=== PATIENT | male | born 1940 | race Caucasian/White ===

== ENCOUNTER → 2016-03-30 | Outpatient (CLI) | payer OTHER ==
[~2016-03-30] MED LIST: ALEN70TA4 PO; AMIO200T4 PO; APIX1TAB3 PO; ATOR-24 PO; CINN500T PO; EZET10TA47 PO; EZET10TA63 PO; FIBER PO; FINA5TAB PO; FSMD/70 PO; FURO-85 PO; FURO20TA PO; GABA-112 PO; GLC/500 PO; GLC500 PO; GLUCTAB7 PO; LANS30CA12 PO; LTR510 PO; MISCCAP80 PO; POTA20TA13 PO; SITA100T3 PO; SITA1TAB27 PO; TPRSR50 PO; [UNRECOGNIZED DRUG - CODE] PO
--- NOTE | 2016-03-31 05:32 | PAP/PSG TECHNICIAN REPORT ---
[facility] Burr Grinder Polysomnogram Report Study name: None Report date: 03/31/2016 Study date: 03/30/2016 Referring Physician: DR. BLAND Name: AVERY MEZA Interpreting Physician: Avery Bland M.D. Date of : 1940 Burr Grinder: Joseline Gamez RPSGT. Sex: Male Age: 75 Study Type: PSG PAP Weight: 195.99 lbs 16.5 in Height: 75 years, Height 5' 9" Neck Circum: BMI: 28.94 Medications: AMIODARONE 400MG, [employer], CINNAMON, ELIQUIS 5 MG, FINASTERIDE 5 MG, FUROSEMIDE 20 MG, GABAPENTIN 100 MG, GLUCOSAINE 500 MG, JANUVIA 100 MG, LIPITOR 40 MG, LOTREL 5-10 MG, METFORMIN 500 MG, METOPROLOL 200 MG, NYSTATIN-TRIAMCINOLONE, POTASSIUM CHLORIDE 20 MEQ, PREVACID 30 MG, PROBIOTIC, ZETIA 10 MG Patient History 75 yr-old male here for a new CPAP treatment study. He was found to be positive for ROYCE via a home sleep study. His AHI was 9.5. He chose an AirFit F10 full face mask size medium from [employer]. The test was started on room air and 4 CMH2O. ETCO2 testing was not utilized during this study. Room 1 Parameters Monitored NPSG: E1-M2, E2-M1, Fp1-M2, Fp2-M1, F3-M2, F4-M2, F4-M1, C3-M2, C4-M2, C4-M1, O1-M2, O2-M2, O2-M1, T3-M2, T4-M1, P3-M2, P4-M1, CHIN1, CHIN2, HR, EKG, Legs, PFLOW, SNOR, FLOW, CFLOW, Tidal Volume, THOR, ABDO, SpO2, PLTH, CPRESS, ETCO2 Wave, ETCO2, pH Sleep Architecture Sleep Stages Time at Lights Off 8:55:16 PM STAGES Time (min.) TST (%) Time at Lights On 4:56:16 AM Wake 140.5 -- Total Recording Time (TRT) 481.00 min. N1 60.5 18 Total Sleep Period (TSP) 451.5 min. N2 201.0 59 Total Sleep Time (TST) 340.5min. N3 0.0 0 Awake Time 140.5 min. REM 79.0 23 Wake after Sleep Onset 128.0 min. Sleep Efficiency (SE) 71 % Sleep Onset Latency (HUBERT) 12.5 min. Number of Stage 1 Shifts None Awakenings 28 Stage Changes 107 Number of REM periods 4 REM 79.0 23 REM Latency 136.0 min. NREM 261.5 77 Body Position Analysis Supine Right Left Side Prone Vertical Total Sleep Time (min.) 27.5 233.5 102.3 335.76 0.0 0.0 Total Sleep Time (%) 1% 69% 30% 99 0% N/A% Total Sleep Time REM (min.) 0.0 77.0 2.0 None 0.0 0.0 Total Sleep Time NREM (min.) 4.7 156.5 100.3 None 0.0 0.0 Intermittent Wake (min.) 22.7 49.8 68.0 None 0.0 0.0 Total Sleep Period (%) 3% None None None None None Arousals Myoclonus (PLM) * Events Count Index Events Count Index Spontaneous 36 6 Events Awake (PLMW) 202 86.3 Respiratory 12 2.6 Events Asleep w/ Arousal (PLMA) 20 3.5 PLM 20 4 Events Asleep w/o Arousal (PLMS) 134 23.6 Snoring 0 0 Total Asleep 154 27.1 Total 68 12 Total 356 44 Respiratory Analysis * CA OA MA CH H RERA Total Count 0 1 0 0 20 7 21 Index 0.0 0.2 0.0 0 3.5 1 4.9 Mean Duration 0.0 19.8 0.0 0.00 19.0 17.1 18.6 Longest Duration 0.0 19.8 0.0 0.00 0.0 19.1 30.5 Respiratory Event Summary Total Supine ~Supine Right Left Prone REM NREM Apneas Count 1 1 0 0 0 N/A 0 1 Index 0.2 13 0 0.0 0.0 N/A 0 0 Hypopneas (4% Desat) Count 20 7 13 6 7 N/A 0 20 Index 3.5 88.5 2 1.5 4.1 N/A 0.0 4.6 Apneas & All Hypopneas Count 21 8 13 6 7 N/A 0 21 Index 3.7 101 2 2 4 N/A 0.0 4.8 Respiratory Events (Artificial Limb Fitter+All Hyp+RERA) Count 21 8 20 8 12 N/A 0 21 Index 4.9 101 4 2.1 7.0 N/A 0.0 6.4 Respiratory Related Arousal Count 12 8 8 2 6 N/A 0 15 Index 2.6 89 1 1 4 N/A 0 3 Snoring Analysis Supine Right Left Prone REM NREM Total Snore duration 1.0 min Snores count 0 9 7 N/A 5 11 16 Snore mean duration 3.8 Sec Snores index 0 2 4 N/A 3.8 2.5 2.8 TST with snoring (%) 0.3% Desaturation Event Summary: Minimum %SpO2 Event Count Mean/Min/Max Duration(sec.) Desaturation Index % Time In Bed > 90 46 33.5 / 15.3 / 60.0 6.2 96.8 86 - 90 0 N/A 0.0 3.1 81 - 85 0 N/A 0.0 0.1 76 - 80 0 N/A 0.0 0.0 71 - 75 0 N/A 0.0 0.0 66 - 70 0 N/A 0.0 0.0 61 - 65 0 N/A 0.0 0.0 56 - 60 0 N/A 0.0 0.0 51 - 55 0 N/A 0.0 0.0 < 50 0 N/A 0.0 0.0 Total REM NREM Awake <50% 0.0 min. 0.0 min. 0.0 min. 0.0 min. 51 - 60% 0.0 min. 0.0 min. 0.0 min. 0.0 min. 61 - 70% 0.0 min. 0.0 min. 0.0 min. 0.0 min. 71 - 80% 0.0 min. 0.0 min. 0.0 min. 0.0 min. 81 - 90% 14.6 min. 4.4 min. 7.8 min. 2.4 min. 91 - 100% 445.2 min. 74.6 min. 253.7 min. 116.9 min. Average 93 93 93 95 Minimum SpO2 82 90 89 82 Desaturation Event Index 5.7 0.0 6.0 9.0 # Desat. Events below 89% 1 N/A N/A 1 Time(%) with Saturation below 89% 0.1 0.0 0.0 0.1 Time(min.) with Saturation below 89% 0.6 0.0 0.0 0.6 Time (mins) REM (mins) NREM (mins) % of TST SpO2 Below 90% 8 N/A N8 0.3 SpO2 Below 88% 0 0 0 0 Heart Rate Analysis Min (bpm) Max (bpm) Average (bpm) Awake 40 237 46 NREM 40 52 46 REM 46 52 48 Overall 40 52 46 Supplemental O2 Values Minimum O2 level: None Value Start Time End Time Burr Grinder Comments Mr. Meza slept in the right and left positions. No cardiac arrhythmias were noted. PLMs were noted. No bruxism noted. CPAP was initiated at +4 CMH2O and up-titrated to a level of +7 CMH2O, Cflex 2. An AirFit F10 full face mask size medium from [employer] was used during titration He awoke to use the restroom one time during the night. Mr. Meza stated that he slept about the same as usual. The final report will be interpreted and signed by a sleep physician. The completed physician report will then be placed in the patient medical record. Therapy Event: Therapy (cm H20) 4 6 7 Total Time at Pressure (min.) 150.8 289.9 40.4 TST at Pressure (min.) 101.3 219.9 19.4 # Periods 1 1 1 Sleep Onset (min.) 12.5 0.0 0.0 REM Onset (min.) 148.5 0.0 17.4 Sleep Efficiency % 67 75 48 Wakefulness (%) 32.8 24.1 52.0 Wakefulness (min.) 49.5 70.0 21.0 NREM 1 (%) 21.2 9.0 6.2 NREM 1 (min.) 32.0 26.0 2.5 NREM 2 (%) 44.4 42.5 26.9 NREM 2 (min.) 67.0 123.1 10.9 NREM 3 (%) 0.0 0.0 0.0 NREM 3 (min.) 0.0 0.0 0.0 REM (%) 1.5 24.4 14.9 REM (min.) 2.3 70.7 6.0 # Arousals 33 30 5 Arousal Index 19.6 8.2 15.5 # Snore 6 8 2 Snore Index 3.6 2.2 6.2 AHI 7.7 1.9 3.1 AHI Supine 110.9 80.0 N/A AHI Non-Supine 4.3 1.4 3.1 NREM AHI 7.9 2.8 4.5 REM AHI 0.0 0.0 0.0 RDI 10.7 2.5 3.1 # Obstructive 0 1 0 # Central Ap 0 0 0 # Mixed 0 0 0 # Hypopneas 13 6 1 RERAS 5 2 0 Total Respiratory Events 18 9 1 Time Below SpO2 89.00% (min.) 0.0 0.0 0.0 Mean NREM SpO2 (%) 92 93 93 Mean REM SpO2 (%) 92 93 93 Mean Sleep SpO2 (%) 92 93 93 Min NREM SpO2 (%) 89 90 91 Min REM SpO2 (%) 91 90 92 Position Supine (min.) 3.2 1.5 0.0 Position Non-supine (min.) 98.0 218.4 19.4 LM Index Sleep 29.6 25.4 34.1 LM Index NREM 30.3 23.3 27.0 LM Index REM 0.0 29.7 50.0 Mean Heart Rate (bpm) 43 48 47 Min Heart Rate (bpm) 40 40 45
--- NOTE | 2016-04-03 07:01 | POLYSOMNOGRAPH REPORT ---
CLINICAL DATA: A 75-year-old male with BMI of 29, referred by myself and his referring physician, for a CPAP titration study. He recently had a home sleep study which showed mild sleep apnea with an AHI of 9.5. He chose an AirFit F10 full face mask size medium from [employer]. SLEEP ARCHITECTURE: Total sleep period was 451.5 minutes. Total sleep time was 340.5 minutes divided between 261.5 minutes of non-REM sleep and 79 minutes of REM sleep. Sleep onset latency was 12.5 minutes. REM latency was slightly delayed at 136 minutes. Sleep efficiency was slightly reduced at 71%. Wake after sleep onset was 128 minutes. Sleep consisted of stage N1 18%, N2 59%, and REM 23%. AROUSAL DATA: 68 arousals were recorded for an index of 12 per hour. PLM DATA: Mildly elevated limb movements during sleep were noted. There were 154 limb movements during sleep noted for an index of 27.1 per hour with arousal index of 3.5 per hour. RESPIRATORY DATA: The AHI was 3.7. There was 1 obstructive apneic episode, 19.8 seconds in duration. There were 20 hypopneic episodes. The mean duration of hypopnea was 19 seconds. OXIMETRY DATA: No hypoxemia was seen. Oxygen mary was 89% during non-REM sleep. Mean saturation was 93%. EKG: Heart rates ranged from 40-52 beats per minute. No arrhythmias were noted. H[employer]CHOOL ACADEMIC COACH'S COMMENTS: The patient slept in the right and left positions. The patient used an AirFit F10 full face mask size medium from [employer]. He was started on CPAP and was titrated up to his final pressure setting of 7 cm of water pressure. At this final pressure setting, the patient slept for 19.4 minutes with an AHI of 3.1. IMPRESSION: Mild sleep apnea corrected with CPAP 7 cm of water pressure, C-Flex setting #2 utilizing an AirFit F10 full face mask size medium from [employer]. RECOMMENDATIONS: The patient will be seen back in the sleep clinic to institute therapy with CPAP. [place]
== END | disposition home or self-care (01) ==
LOC: C.NEUR 20:00
PROVIDERS: ATTEND Internal Medicine Pulmonary Disease
DX: I48.91 Unspecified atrial fibrillation (principal); G47.19 Other hypersomnia; G47.33 Obstructive sleep apnea (adult) (pediatric)

== ENCOUNTER → 2016-04-04 | Outpatient (CLI) | payer OTHER ==
[~2016-04-04] VITALS: Ht 175.3 cm; Wt 86.8 kg
[2016-04-04 12:08] VITALS: BP 138/88; PULSE 48; Ht 175.3 cm; Wt 86.8 kg
== END | disposition home or self-care (01) ==
LOC: C.NEUR 11:25
PROVIDERS: ATTEND Internal Medicine Pulmonary Disease
DX: G47.33 Obstructive sleep apnea (adult) (pediatric) (principal); I48.91 Unspecified atrial fibrillation

== ENCOUNTER → 2016-04-21 | Day surgery (SDC) | payer OTHER ==
[2016-04-10 13:52] VITALS: BMI 28.0
[~2016-04-21] VITALS: Ht 175.3 cm; Wt 86.4 kg
[~2016-04-21] MED LIST changes: -EZET10TA47 PO; -FSMD/70 PO; -FURO20TA PO; -GLC500 PO; +GLYCOPYRROLATE INJ 0.2 MG/ML VIAL ONE; +LIDOCAINE HCL 2% 2 ML VIAL (20MG/ML) ONE; +PROPOFOL IV EMULSION 10 MG/ML 20 ML VIAL IV ONE; -SITA1TAB27 PO; -TPRSR50 PO; -[UNRECOGNIZED DRUG - CODE] PO
[2016-04-21 14:00] VITALS: TEMP 36.4
[2016-04-21 14:06] VITALS: Ht 175.3 cm; Wt 86.4 kg
--- NOTE | 2016-04-21 14:57 | Endo History and Physical ---
History & Physical Date of Service: Apr 21, 2016. Chief Complaint: DIFFICULTY SWALLOWING Referring Physician: DR SEDRICK TO History of Present Illness For EGD Past Medical History Diabetes, Arthritis, High Cholesterol, Hypertension Past Surgical History Hx Cardiac Surgery: Yes (HEART CATH --> VALVE REPLACEMENT AND REPAIR, CARDIOVERSION X3) Hx Internal Defibrillator: No Hx Pacemaker: No Hx Abdominal Surgery: Yes (HERNIA REPAIR X2) Hx of Implantable Prosthesis: No Hx Post-Op Nausea and Vomiting: No Hx Cancer Surgery: No Hx Thoracic Surgery: No Hx Orthopedic: No Hx Urinary Tract Surgery: Yes (TURP) Family History None Social History Smoking Status: Never Smoker Hx Substance Use: No Hx Alcohol Use: Yes (QUIT 15 YEARS AGO) Allergies Coded Allergies: Oxycodone (Verified Adverse Reaction, Intermediate, "made me loopy", ) Current Medications Reported Home Medications Medications Dose Route/Sig Max Daily Dose Days Date Category Probiotic (Probiotic Product) 1 Cap Cap 1 Tab PO BID 04/21/16 Reported Januvia (Sitagliptin Phosphate) 100 Mg Tab 100 Mg PO DAILY 04/12/16 Reported Glucophage (Metformin Hcl) 500 Mg Tab 1,000 Mg PO BID 04/12/16 Reported Prevacid (Lansoprazole) 30 Mg Capcr 30 Mg PO DAILY 04/12/16 Reported Glucosamine Chondroitin (Zipydbhhbqa-Xmalifzqhpa-Vvy C-) 1 Tab Tab 2 Tab PO DAILY 04/12/16 Reported Neurontin (Gabapentin) 100 Mg Cap 100 Mg PO TID 04/12/16 Reported Lasix (Furosemide) 20 Mg Tab 20 Mg PO DAILY 04/12/16 Reported Proscar (Finasteride) 5 Mg Tab 5 Mg PO DAILY 04/12/16 Reported Fiber Laxative (Fiber) Ea 1 Tab PO DIRECTED PRN 04/12/16 Reported Zetia (Ezetimibe) 10 Mg Tab 10 Mg PO DAILY 04/12/16 Reported Cinnamon 500 Mg Tab 2 Tab PO DAILY 04/12/16 Reported Lipitor (Atorvastatin Calcium) 40 Mg Tab 40 Mg PO DAILY 04/12/16 Reported Eliquis (Apixaban) 5 Mg Tab 1 Tab PO BID 04/12/16 Reported Lotrel 5MG/10MG (Amlodipine/Benazepril HCl) 5 Mg/10 Mg Cap 1 Cap PO DAILY 04/12/16 Reported Fosamax (Alendronate Sodium) 70 Mg Tab 70 Mg PO WK 04/12/16 Reported Cordarone (Amiodarone Hcl) 200 Mg Tab 200 Mg PO DAILY 04/12/16 Reported Potassium Chloride Er (Potassium Chloride Microencaps) 20 Meq Tab 20 Meq PO DAILY 01/13/15 Reported Vital Signs Weight (Kilograms): 86.36 Height (Feet): 5 Height (Inches): 9 Date Time Temp Pulse Resp B/P Pulse Ox O2 Delivery O2 Flow Rate FiO2 04/21/16 14:02 190/95 04/21/16 14:00 36.4 48 20 193/90 100 Room Air Physical Exam General Appearance: WD/WN Respiratory/Chest: Respiratory effort: no dyspnea Cardiovascular: Heart Auscultation: RRR Abdomen: Inspection & Palpation: soft (Dysphagia for EGD)
--- NOTE | 2016-04-21 14:58 | Discharge Instructions ---
Endoscopy Patient Instructions Date / Procedure(s) Performed Apr 21, 2016. EGD Allergy Information Coded Allergies: Oxycodone (Verified Adverse Reaction, Intermediate, "made me loopy", ) Discharge Date / Findings Apr 21, 2016. Thickened antral folds Medication Instructions Stopped Medication(s): GABAPENTIN LAST DOSE 04/18/16 ELAQUIS LAST DOSE 04/18/16 Restart Stopped Medication(s): resume meds Reported Home Medications Medications Dose Route/Sig Max Daily Dose Days Date Category Probiotic (Probiotic Product) 1 Cap Cap 1 Tab PO BID 04/21/16 Reported Januvia (Sitagliptin Phosphate) 100 Mg Tab 100 Mg PO DAILY 04/12/16 Reported Glucophage (Metformin Hcl) 500 Mg Tab 1,000 Mg PO BID 04/12/16 Reported Prevacid (Lansoprazole) 30 Mg Capcr 30 Mg PO DAILY 04/12/16 Reported Glucosamine Chondroitin (Pdtheamqpig-Glaqjaqganm-Bjp C-) 1 Tab Tab 2 Tab PO DAILY 04/12/16 Reported Neurontin (Gabapentin) 100 Mg Cap 100 Mg PO TID 04/12/16 Reported Lasix (Furosemide) 20 Mg Tab 20 Mg PO DAILY 04/12/16 Reported Proscar (Finasteride) 5 Mg Tab 5 Mg PO DAILY 04/12/16 Reported Fiber Laxative (Fiber) Ea 1 Tab PO DIRECTED PRN 04/12/16 Reported Zetia (Ezetimibe) 10 Mg Tab 10 Mg PO DAILY 04/12/16 Reported Cinnamon 500 Mg Tab 2 Tab PO DAILY 04/12/16 Reported Lipitor (Atorvastatin Calcium) 40 Mg Tab 40 Mg PO DAILY 04/12/16 Reported Eliquis (Apixaban) 5 Mg Tab 1 Tab PO BID 04/12/16 Reported Lotrel 5MG/10MG (Amlodipine/Benazepril HCl) 5 Mg/10 Mg Cap 1 Cap PO DAILY 04/12/16 Reported Fosamax (Alendronate Sodium) 70 Mg Tab 70 Mg PO WK 04/12/16 Reported Cordarone (Amiodarone Hcl) 200 Mg Tab 200 Mg PO DAILY 04/12/16 Reported Potassium Chloride Er (Potassium Chloride Microencaps) 20 Meq Tab 20 Meq PO DAILY 01/13/15 Reported Provider Instructions Activity Restrictions - No exercising or heavy lifting for 24 hours. - Do not drink alcohol the day of the procedure. - Do not drive a car or operate machinery until the day after the procedure. - Do not make any important decisions or sign important papers in 24 hours after the procedure. Following Day: - Return to full activity which may include returning to work/school. Diet Start your diet with liquids and light foods (jello, soup, juice, toast). Then eat your usual diet if not nauseated. Treatment For Common After Affects For mild abdominal pain, bloating, or excessive gas: - Rest - Eat lightly - Lie on right side Follow-Up Information Follow-up with DR SEDRICK TO as scheduled Anesthesia Information What You Should Know You have had a procedure that required some medicine to reduce anxiety and discomfort. This treatment is called moderate sedation. After receiving the treatment, you may be sleepy, but you will be able to breathe on your own. The effects of the treatment may last for several hours. Follow these instructions along with Activity/Diet recommendations noted above: * Do NOT do anything where dizziness or clumsiness would be dangerous. * Rest quietly at home today, then you can be up and about tomorrow. * Have a responsible person stay with you the rest of today. * You may have had an I.V. today. If so, you may take the dressing off later today. Recommendations Call your doctor if: * Trouble breathing * Continuous vomiting for more than 24 hours * Temperature above 101 degrees * Severe abdominal pain or bloating * Pain not relieved by pain medicine ordered * There is increased drainage or redness from any incision * A large amount of rectal bleeding greater than 2-3 tablespoons. (If you had a polyp/s removed or have hemorrhoids, a small amount of blood - from the rectum is to be expected.) * You have any unanswered questions or concerns. IN THE EVENT OF A SERIOUS EMERGENCY, GO TO THE NEAREST EMERGENCY ROOM Your discharge instructions were prepared by provider Charles Bryant. Patient Instructions Signature Page Florentin Portillo Patient (or Guardian) Signature/Date: I have read and understand the instructions given to me by my caregivers. Caregiver/RN/Doctor Signature/Date: The above-named patient and/or guardian has received patient instructions on this date. + Original Patient Signature Page (only) stays with chart. Please make copy for patient.
--- NOTE | 2016-04-21 15:02 | GI REPORT ---
Procedure Date: 04/21/2016 2:49 PM Procedure: Upper GI endoscopy Indications: Dysphagia Medicines: Propofol total dose 80 mg IV, Lidocaine 20 mg IV Complications: No immediate complications. Estimated Blood Loss: Estimated blood loss: none. Procedure: Pre-Anesthesia Assessment: - Prior to the procedure, a History and Physical was performed, and patient medications, allergies and sensitivities were reviewed. The patient's tolerance of previous anesthesia was reviewed. - The risks and benefits of the procedure and the sedation options and risks were discussed with the patient. All questions were answered and informed consent was obtained. After obtaining informed consent, the endoscope was passed under direct vision. Throughout the procedure, the patient's blood pressure, pulse, and oxygen saturations were monitored continuously. The scope was introduced through the mouth, and advanced to the second part of duodenum. The upper GI endoscopy was accomplished without difficulty. The patient tolerated the procedure well. Findings: The examined esophagus was normal. Patchy mild mucosal changes characterized by congestion were found in the gastric antrum. The examined duodenum was normal. Impression: - Normal esophagus. - Congested mucosa in the antrum. - Normal examined duodenum. - No specimens collected. Recommendation: - Discharge patient to home (ambulatory). - Continue present medications. - Return to primary care physician PRN. Charles Bryant M.D. Charles Bryant MD 04/21/2016 3:02:39 PM This report has been signed electronically. Note Initiated On: 04/21/2016 2:49 PM I attest to the content of the Intraoperative Record and orders documented therein, exceptions below
[2016-04-21 15:32] VITALS: BP 169/79; PULSE 44; O2SAT 97
--- NOTE | 2016-04-21 16:02 | Anesthesiology Progress Note ---
Anesthesia Post Op Note Date & Time Apr 21, 2016 at 16:02 Vital Signs Pain Intensity: 0 Vital Signs Past 12 Hours Date Time Temp Pulse Resp B/P Pulse Ox O2 Delivery O2 Flow Rate FiO2 04/21/16 15:32 44 20 169/79 97 Room Air 04/21/16 15:17 45 20 183/81 96 Room Air 04/21/16 15:02 41 20 141/68 98 Room Air 04/21/16 14:02 190/95 04/21/16 14:00 36.4 48 20 193/90 100 Room Air Notes Mental Status: alert / awake / arousable, participated in evaluation Pt Amnestic to Procedure: Yes Nausea / Vomiting: adequately controlled Pain: adequately controlled Airway Patency, RR, SpO2: stable & adequate BP & HR: stable & adequate Hydration State: stable & adequate Anesthetic Complications: no major complications apparent
== END | disposition home or self-care (01) ==
LOC: C.GI 13:31
PROVIDERS: ATTEND Internal Medicine Gastroenterology
DX: R13.10 Dysphagia, unspecified (principal); E11.9 Type 2 diabetes mellitus without complications; E78.00 Pure hypercholesterolemia, unspecified; I10 Essential (primary) hypertension; Z95.2 Presence of prosthetic heart valve

== ENCOUNTER → 2016-06-27 | Outpatient (CLI) | payer OTHER ==
[~2016-06-27] VITALS: Ht 175.3 cm; Wt 86.0 kg
[~2016-06-27] MED LIST changes: -GLYCOPYRROLATE INJ 0.2 MG/ML VIAL ONE; -LIDOCAINE HCL 2% 2 ML VIAL (20MG/ML) ONE; -PROPOFOL IV EMULSION 10 MG/ML 20 ML VIAL IV ONE
[2016-06-27 12:45] VITALS: BP 131/69; PULSE 38; Ht 175.3 cm; Wt 86.0 kg
[2016-06-27 12:46] VITALS: PULSE 81
== END | disposition home or self-care (01) ==
LOC: C.NEUR 10:57
PROVIDERS: ATTEND Physician Assistant Medical
DX: G47.33 Obstructive sleep apnea (adult) (pediatric) (principal); I48.91 Unspecified atrial fibrillation

== ENCOUNTER → 2016-07-18 | Outpatient (CLI) | payer OTHER | END | disposition home or self-care (01) | LOC: C.LABMFLN 07:13 | PROVIDERS: ATTEND Urology | DX: N40.1 Benign prostatic hyperplasia with lower urinary tract symptoms (principal) ==

== ENCOUNTER → 2016-07-25 | Outpatient (CLI) | payer OTHER | END | disposition home or self-care (01) | LOC: C.PATHSPEC 17:24 | PROVIDERS: ATTEND Urology | DX: N40.1 Benign prostatic hyperplasia with lower urinary tract symptoms (principal) ==

== ENCOUNTER → 2016-11-16 | Outpatient (CLI) | payer OTHER ==
--- NOTE | 2016-11-16 13:07 | DIAGNOSTIC IMAGING REPORT ---
LEFT ART DOP DUP UPPER EXT UNI CLINICAL HISTORY: SWELLING, MASS IN LEFT UPPER LIMB COMPARISON STUDY: No previous studies for comparison. FINDINGS: Arterial Doppler ultrasound of the left upper extremity was performed. Left common carotid and vertebral waveforms appear normal. There is triphasic flow within the left subclavian. There is biphasic flow within the left axillary. There was biphasic flow within the left brachial. There is triphasic flow within the distal left brachial. There is biphasic flow within the left radial and triphasic flow within the left ulnar artery. There are no high velocity jets to indicate an arterial stenosis. The patient's small anterior upper arm lump appears to represent the brachial artery. No aneurysm was visualized at this location. IMPRESSION: 1. No evidence of left upper extremity or arterial stenosis 2. The patient's palpable abnormality appears to correspond to a normal brachial artery Electronically signed by: Aren Clemente M.D. 11/16/2016 1:06 PM Dictated Date/Time: 11/16/2016 1:04 PM
== END | disposition home or self-care (01) ==
LOC: C.ULTR 12:15
PROVIDERS: ATTEND Family Medicine
DX: R22.32 Localized swelling, mass and lump, left upper limb (principal)

== ENCOUNTER → 2016-12-26 | Outpatient (CLI) | payer OTHER ==
[~2016-12-26] VITALS: Ht 175.3 cm; Wt 81.7 kg
[2016-12-26 12:40] VITALS: BP 158/75; PULSE 56; Ht 175.3 cm; Wt 81.7 kg
== END | disposition home or self-care (01) ==
LOC: C.NEUR 12:10
PROVIDERS: ATTEND Physician Assistant Medical
DX: G47.33 Obstructive sleep apnea (adult) (pediatric) (principal); I48.91 Unspecified atrial fibrillation

== ENCOUNTER → 2017-06-26 | Outpatient (CLI) | payer OTHER ==
[~2017-06-26] VITALS: Ht 175.3 cm; Wt 83.0 kg
[2017-06-26 12:41] VITALS: BP 174/88; PULSE 52; Ht 175.3 cm; Wt 83.0 kg
== END | disposition home or self-care (01) ==
LOC: C.NEUR 12:05
PROVIDERS: ATTEND Internal Medicine Pulmonary Disease
DX: G47.33 Obstructive sleep apnea (adult) (pediatric) (principal); I25.10 Atherosclerotic heart disease of native coronary artery without angina pectoris; I48.91 Unspecified atrial fibrillation

== ENCOUNTER 2019-05-10 22:54 | Inpatient (IN) ==
[2019-05-11 00:03] LABS: Basophils # (auto) 0.03 K/uL (0-0.2); Basophils % (auto) 0.4 %; Eosinophils # (auto) 0.47 K/uL (0-0.5); Eosinophils % (auto) 6.7 %; Hematocrit (blood only) 43.6 % (42-52); Hemoglobin 14.1 g/dL (14.0-18.0); Immature Granulocytes # (auto) 0.01 K/uL (0.00-0.02); Immature Granulocytes % (auto) 0.1 %; Lymphocytes # (auto) 1.52 K/uL (1.2-3.4); Lymphocytes % (auto) 21.6 %; Mean Corpuscular Hemoglobin 29.1 pg (25-34); Mean Corpuscular Hgb Conc 32.3 g/dL (32-36); Mean Corpuscular Volume 90.1 fL (80-100); Mean Platelet Volume 10.3 fL (7.4-10.4); Monocytes # (auto) 0.72 K/uL (0.11-0.59); Monocytes % (auto) 10.2 %; Neutrophils # (auto) 4.28 K/uL (1.4-6.5); Platelet Count 216 K/uL (130-400); RDW Coefficient of Variation 13.8 % (11.5-14.5); RDW Standard Deviation 45.9 fL (36.4-46.3); Red Blood Count 4.84 M/uL (4.7-6.1); White Blood Count 7.03 K/uL (4.8-10.8)
[2019-05-11] MEDS ORDERED: LIDOCAINE HCL 5% OINT 30 GM TUBE EXT STA (00:06)
[2019-05-11 00:20] LABS: Albumin Level 3.9 gm/dl (3.4-5.0); BUN Creatinine Ratio 17.7 (10-20); Calcium 9.1 mg/dl (8.5-10.1); Creatinine Clr Calc Pharmacy 43.6 ml/min; Est GFR (African American) 58.5; Est GFR (Non-African American) 50.5; Potassium 4.3 mmol/L (3.5-5.1)
[2019-05-11 00:22] LABS: Albumin Globulin Ratio 1.1 (0.9-2); Bilirubin,Total 0.4 mg/dl (0.2-1); Globulin 3.7 gm/dl (2.5-4.0); Total Protein 7.6 gm/dl (6.4-8.2)
[2019-05-11] MEDS ORDERED: SODIUM CHLORIDE 0.9% 1000ML 500 ML IV ONE (00:28)
[2019-05-11] MEDS ORDERED: SODIUM CHLORIDE 0.9% 500 ML IV ONE ×2 (01:11→01:47)
[2019-05-11] MEDS ORDERED: IOVERSOL 100ml IV PRN (01:19)
[2019-05-11 01:31] LABS: Appearance Urine Turbid (Clear); Color Urine Red; Specific Gravity Urine 1.032 (1.000-1.060); Sulfosalicylic Acid Urine Positive (Negative)
[2019-05-11 01:33] LABS: RBC Urine >30 /hpf (0-4)
[2019-05-11 01:38] LABS: Bacteria Urine Negative (Negative); Epithelial Cell Urine 0-5 /lpf (0-5)
[2019-05-11] MEDS ORDERED: SODIUM CHLORIDE 0.9% 1000ML 1,000 ML IV SCH (03:30)
--- NOTE | 2019-05-11 04:12 | History & Physical Report ---
Date of Service May 11, 2019 Assessment & Plan (1) Gross hematuria: Patient and report patient has had gross hematuria on and off over the past 11 years. He worsened considerably today. Holding Eliquis. Bladder irrigation. Follow urine culture and sensitivity. Start ceftriaxone 1 g IV daily. Consult urology Present on Admission?: Yes (2) Renal mass, right: 2.5 cm lower pole right kidney lesion which is new compared to CT of 2013. Unclear if this is known to urology, whom will be consulted. Most likely source of gross hematuria. NPO except essential medications Present on Admission?: Yes (3) Hypotension: Patient's blood pressure did drop into the systolic mid 80s. Occurred after placement of Lemus catheter and bladder irrigation. Pressure has recovered to the 110s after 2 L of normal saline. Continue IV fluid rehydration, and follow blood pressure closely. Present on Admission?: Yes (4) Neoplasm, bladder: Known history of bladder neoplasm. Present on Admission?: Yes (5) Atrial fibrillation with RVR: Continue amiodarone 200 mg p.o. daily. Due to low blood pressure, will be holding the following: Amlodipine/benazepril, metoprolol succinate, potassium chloride. Continue amiodarone 200 mg daily Present on Admission?: Yes (6) Prostatitis: BPH with LUTS/prostatitis/history of transurethral resection of prostate- Continue IV fluids. Continue finasteride If blood pressure tolerates would add tamsulosin Present on Admission?: Yes (7) Enlarged prostate: See above Present on Admission?: Yes (8) Hx of transurethral resection of prostate: See above Present on Admission?: Yes (9) H/O aortic valve replacement: History of aortic valve replacement/mitral valve replacement/atrial fibrillation with RVR- We will consult his commercial real estate assistant Dr. Borrego, to help with timing of anticoagulation return. Eliquis will be held until restarted by cardiology Present on Admission?: Yes (10) Hx of von Willebrand's disease: Noted, following platelets serially Present on Admission?: Yes (11) Diabetes mellitus: Patient will be n.p.o. We will hold Jardiance, metformin and sitagliptin. Patient Accu-Cheks before meals and at bedtime/every 6 hours, with NovoLog coverage for scale Present on Admission?: Yes (12) Parkinson's disease: Continue carbidopa levodopa 25/100, 1 tablet p.o. 3 times daily Present on Admission?: Yes (13) GERD (gastroesophageal reflux disease): Continue pantoprazole 40 mg p.o. daily Present on Admission?: Yes History of Present Illness Chief Complaint: The patient presents to the emergency department, with his , due to worsening gross hematuria. Primary Care Provider: Lucho Jacques The patient is a 78-year-old male with a past medical history including gross hematuria, microscopic hematuria, bladder neoplasm, atrial fibrillation, BPH with urinary obstruction, history of aortic valve replacement, history of transurethral resection of the prostate, atrial fibrillation with RVR, history of von Willebrand's disease, prostatitis, history of urinary tract infections. He and his report that he has had gross hematuria off and on for the past 11 years, has been seen by Dr. Brown locally and also by urology at [facility]. His last visit with Dr. Brown was near the end of March. He has had instances where he had to have his Eliquis discontinued briefly and the amiodarone discontinued briefly due to gross hematuria, but most recently has been on both amiodarone and Eliquis, and today noted the acute onset of more significantly brisk blood in urine. Allergies Allergy/AdvReac Type Severity Reaction Status Date / Time oxycodone AdvReac Intermediate "made me Verified 05/11/19 01:51 loopy" Home Medications Home Medications Medication Instructions Recorded Confirmed Type alendronate 70 mg tablet 70 mg PO WE #4 tab 12/03/18 05/11/19 History amlodipine 5 mg-benazepril 10 mg 1 cap PO QAM cap 12/03/18 05/11/19 History capsule apixaban 5 mg tablet 5 mg PO BID #60 tab 12/03/18 05/11/19 History atorvastatin 40 mg tablet 40 mg PO QPM #90 tab 12/03/18 05/11/19 History ezetimibe 10 mg tablet 10 mg PO HS #90 tab 12/03/18 05/11/19 History furosemide 20 mg tablet 20 mg PO HS #90 tab 12/03/18 05/11/19 History lansoprazole 30 mg capsule,delayed 30 mg PO QDD cap 12/03/18 05/11/19 History release metformin 500 mg tablet 1,000 mg PO BID tab 12/03/18 05/11/19 History metoprolol succinate 50 mg 50 mg PO QAM #30 tab 12/03/18 05/11/19 History tablet,extended release 24 hr potassium chloride 20 mEq 20 meq PO BID #90 tab 12/03/18 05/11/19 History tablet,extended release sitagliptin 100 mg tablet 100 mg PO HS tab 12/03/18 05/11/19 History gabapentin 100 mg PO QAM 01/09/19 05/11/19 History finasteride 5 mg tablet 5 mg PO HS #90 tab 01/23/19 05/11/19 History carbidopa 25 mg-levodopa 100 mg 1 tab PO TID 30 Days #90 tab 01/27/19 05/11/19 Rx tablet amiodarone 200 mg PO QAM 03/07/19 05/11/19 History empagliflozin [Jardiance] 10 mg PO DAILY 05/11/19 05/11/19 History Past Med/Surg History Social History Preferred Language: Vietnamese Feels Safe at Home: Yes Smoking Status: Never smoker Review of Systems Review of Systems: The patient denies chest pain, palpitations, shortness of breath, dyspnea on exertion, cough, lower extremity swelling, sore throat, fevers, chills, sweats, weight change, fatigue, nausea, vomiting, diarrhea , constipation, abdominal pain, pelvic pain, blood in stool, dysuria, ightheadedness, dizziness, headache, memory loss, loss of consciousness, rash, imbalance, focal or generalized weakness, numbness or tingling in arms or legs, generalized arthralgias or myalgias, neck pain, or night sweats. The review of systems is otherwise negative other than for that already noted above, and at least 10 systems have been reviewed. Physical Exam Physical Exam: The patient is awake, alert and oriented 3, well developed and well nourished, normocephalic and atraumatic, lying in bed and in no acute distress. HEENT--PERRL, EOMI, mucous membranes and oropharynx dry. Neck--supple. No JVD. No bruits. Thyroid normal, trachea midline, no adenopathy. Heart--normal S1 and S2. No murmurs, rubs or gallops. Lungs--clear bilaterally, no respiratory distress, no accessory muscle use. Abdomen--normal bowel sounds and soft. Nontender. Nondistended. Extremities--no cyanosis or clubbing. No edema. Dermatologic--normal skin turgor, normal color, no abnormal lymph nodes, no rash. Neurologic--cranial nerves II through XII grossly intact. Rheumatologic--normal range of motion. Psychiatric--normal affect. Results & Data Vital Signs (Past 12 Hours) Vital Signs Temp Pulse Pulse Resp BP BP Pulse Ox 05/11/19 02:50 87 18 97/63 L 96 05/11/19 02:40 112 H 18 86/68 L 97 05/11/19 02:30 91 H 20 85/66 L 97 05/11/19 02:20 92 H 20 89/67 L 97 05/11/19 02:13 118 H 18 82/65 L 98 05/11/19 02:10 109 H 18 68/60 L 96 05/11/19 02:00 102 H 19 88/63 L 96 05/11/19 01:50 104 H 18 88/64 L 97 05/11/19 01:42 103 H 16 99/64 L 98 05/11/19 01:40 112 H 15 99/64 L 98 05/11/19 01:20 101 H 14 78/58 L 96 05/11/19 01:10 110 H 16 74/52 L 97 05/11/19 01:00 100 H 17 85/63 L 98 05/11/19 00:54 88 16 80/61 L 05/11/19 00:50 89 12 78/61 L 05/11/19 00:42 86 18 05/11/19 00:40 96 H 13 76/52 L 05/11/19 00:39 104 H 18 84/68 L 05/11/19 00:30 93 H 17 88/58 L 05/11/19 00:28 107 H 19 05/11/19 00:26 93 H 14 81/57 L 05/10/19 23:01 97.5 F L 91 H 16 124/89 96 Laboratory Results Laboratory Results WBC 7.03 K/uL (4.8-10.8) 05/10/19 23:37 RBC 4.84 M/uL (4.7-6.1) 05/10/19 23:37 Hgb 14.1 g/dL (14.0-18.0) 05/10/19 23:37 Hct 43.6 % (42-52) 05/10/19 23: MCV 90.1 fL (80-100) 05/10/19 23:37 MCH 29.1 pg (25-34) 05/10/19 23: MCHC 32.3 g/dL (32-36) 05/10/19 23: RDW Std Deviation 45.9 fL (36.4-46.3) 05/10/19 23: RDW Coeff of Tyrese 13.8 % (11.5-14.5) 05/10/19: Plt Count 216 K/uL (130-400) 05/10/19: MPV 10.3 fL (7.4-10.4) 05/10/19 23: Immature Gran % (Auto) 0.1 % 05/10/19 23: Neut % (Auto) 61.0 % 05/10/19 23:37 Lymph % (Auto) 21.6 % 05/10/19 23:37 [place] % (Auto) 10.2 % 05/10/19 23:37 Eos % (Auto) 6.7 % 05/10/19:37 Baso % (Auto) 0.4 % 05/10/19: Immature Gran # (Auto) 0.01 K/uL (0.00-0.02) 05/10/19 23:37 Neut # (Auto) 4.28 K/uL (1.4-6.5) 05/10/19 23:37 Lymph # (Auto) 1.52 K/uL (1.2-3.4) 05/10/19 23:37 [place] # (Auto) 0.72 K/uL (0.11-0.59) H 05/10/19 23:37 Eos # (Auto) 0.47 K/uL (0-0.5) 05/10/19: Baso # (Auto) 0.03 K/uL (0-0.2) 05/10/19 23:37 Sodium 139 mmol/L (136-145) 05/10/19 23:37 Potassium 4.3 mmol/L (3.5-5.1) 05/10/19 23:37 Chloride 108 mmol/L (98-107) H 05/10/19 23:37 Carbon Dioxide 25 mmol/L (21-32) 05/10/19 23:37 Anion Gap 6.0 (3-11) 05/10/19 23:37 BUN 24 mg/dl (7-18) H 05/10/19 23:37 Creatinine 1.33 mg/dl (0.6-1.4) 05/10/19 23:37 Est Cr Clr Drug Dosing 43.6 ml/min 05/10/19 23:37 Est GFR ( Amer) 58.5 05/10/19 23:37 Est GFR (Non-Af Amer) 50.5 05/10/19 23:37 BUN/Creatinine Ratio 17.7 (10-20) 05/10/19 23:37 Glucose 166 mg/dl (70-99) H 05/10/19 23:37 Lactate 3.1 mmol/L (0.4-2.0) H* 05/11/19 02:33 Calcium 9.1 mg/dl (8.5-10.1) 05/10/19 23:37 Total Bilirubin 0.4 mg/dl (0.2-1) 05/10/19 23:37 AST 15 U/L (15-37) 05/10/19 23:37 ALT 11 U/L (12-78) L 05/10/19 23:37 Alkaline Phosphatase 60 U/L (45-117) 05/10/19 23:37 Total Protein 7.6 gm/dl (6.4-8.2) 05/10/19 23:37 Albumin 3.9 gm/dl (3.4-5.0) 05/10/19 23:37 Globulin 3.7 gm/dl (2.5-4.0) 05/10/19 23:37 Albumin/Globulin Ratio 1.1 (0.9-2) 05/10/19 23:37 Procalcitonin 0.06 ng/ml (0-0.5) 05/11/19 02:33 Urine Color Red 05/10/19 23:50 Urine Appearance Turbid (Clear) A 05/10/19 23:50 Urine pH (4.5-7.5) 05/10/19 23:50 Ur Specific [place] 1.032 (1.000-1.060) 05/10/19 23:50 Urine Protein (Negative) 05/10/19 23:50 Urine Glucose (UA) (Negative) 05/10/19 23:50 Urine Ketones (Negative) 05/10/19 23:50 Urine Blood (Negative) 05/10/19 23:50 Urine Nitrite (Negative) 05/10/19 23:50 Urine Bilirubin (Negative) 05/10/19 23:50 Urine Urobilinogen (Negative) 05/10/19 23:50 Ur Leukocyte Esterase (Negative) 05/10/19 23:50 Urine RBC >30 /hpf (0-4) H 05/10/19 23:50 Urine WBC 10-30 /hpf (0-5) H 05/10/19 23:50 Ur Epithelial Cells 0-5 /lpf (0-5) 05/10/19 23:50 Urine Bacteria Negative (Negative) 05/10/19 23:50 Diagnostic Findings [facility] Patient: AVERY MEZA (Male) : 38 Status: ER Date: 05/11/19 01:34 Room #: History: hematuria, hypotension, APPENDIX PRESENT, 93 ML OPTIRAY 320 Slices: [id number] Priors: Tech: Patrick Martinez @ [phone] Exams: CT ABDOMEN & PELVIS With Contrast Contrast: IV Amt: 93 Accession Numbers: [id number] Preliminary Findings Only See Final Report For Complete Findings CT ABDOMEN & PELVIS With Contrast: Comparison 12/17/2012 5 mm noncalcified subpleural pulmonary nodule at the left base is again seen, not significantly changed Aortic and mitral valve replacements and right coronary calcification and/or stent again noted There is now a 2.5 cm lesion at the lower pole the right kidney axial 41 conc erning for renal cell carcinoma until proven otherwise Small nonobstructing right intrarenal stone The prostate is enlarged elevating the neck of the bladder Lemus within a collapsed bladder No hydronephrosis Gallbladder appears within limits No bowel dilation or free air No free fluid The appendix is not identified, no secondary signs Radiologist: Callum Rios M.D. Study ready at 01:44 and initial results transmitted at 01:59 *This report constitutes a preliminary interpretation only. Non-acute findings felt to be unrelated to the clinical presentation may not be discussed in this report. The study will be interpreted and a final report will be generated by the local Radiologist the following shift. To reach the hospital radiology department call [phone]. If a discrepancy is found between the preliminary and final interpretations of this study, please notify us via our Client Portal at [email or web address] QA Exams.You can also fax this report with a description of the discrepancy, or include the final report, to our daytime fax number [phone].If faxing, please indicate the severity of discrepancy using one of the following categories: [ ] 1 - Agree/Informational [ ] 2 - Unlikely to Affect Management [ ] 3 - Possible Eventual Change of Management [ ] 4 - Probable Immediate Change of Management For all other patient related information, please fax us at [phone]. [id number] Code Status & VTE Plan Code Status Full code VTE Prophylaxis Plan VTE Prophylaxis will be ordered: Yes PG Care Time/CCT Total # of Minutes Spent Total Time Spent with Patient: Total time spent is greater than 50% in coordination of care (as documented) at patient's floor/unit and/or counseling patient: Coding Level of Care Code 65451 Initial Inpt Care Lvl 3 Diagnoses Gross hematuria R31.0 Renal mass, right N28.89 Hypotension I95.9 Hypotension type: unspecified hypotension type Neoplasm, bladder D49.4 Atrial fibrillation with RVR I48.91 Prostatitis N41.9 Enlarged prostate N40.0 Hx of transurethral resection of prostate Z98.890; Z90.79 H/O aortic valve replacement Z95.2 Hx of von Willebrand's disease Z86.2 Diabetes mellitus E11.9 Parkinson's disease G20 GERD (gastroesophageal reflux disease) K21.9 (1) Hypotension Hypotension type: unspecified hypotension type Qualified Code(s): I95.9 - Hypotension, unspecified
--- NOTE | 2019-05-11 04:16 | Emergency Department Note ---
Entered by Itz Segura acting as a scribe for Carolina Griffin DO History of Present Illness General Chief complaint: Urinary Symptoms Stated complaint: URINATING BLOOD Time Seen by Provider: 05/10/19 23:15 Source: patient and family History of Present Illness Onset (ago): day(s) (today) Location: abdomen Pain Consistency: + other (persistent) Maximum Pain Intensity: 4 Quality: + other (hematuria) Associated symptoms: + other (Positive for not being able to urinate much and passing blood clots. Negative for bleeding from other locations, fever, chills, back pain, scrotal swelling, and testicular pain.) The patient is a 78 year old male who presents to the emergency department with complaints of persistent hematuria beginning today. Per family member, the patient has been having intermittent episodes of hematuria for the last 11 years. She states that the patient was stopped on Eliquis, and she notes that the patients hematuria resolved for a few years. She reports that the patient has had episodes of hematuria once a month for the last few months. She states that the patient started Eliquis again a few weeks ago, and she notes that he s tarted having hematuria again today. The patient states that his last dose of Eliquis was yesterday morning. Per family member, the patient cannot urinate much, and the patient states that he has felt some blood clots when he does urinate. He denies any bleeding from other locations, fever, chills, back pain, scrotal swelling, and testicular pain. He notes that he has a history of Afib and an enlarged prostate. Pt sees Dr. Brown for urology and Dr. Mcarthur for cardiology. Home Medications Home Medications Medication Instructions Recorded Confirmed Type alendronate 70 mg tablet 70 mg PO WE #4 tab 12/03/18 05/11/19 History amlodipine 5 mg-benazepril 10 mg 1 cap PO QAM cap 12/03/18 05/11/19 History capsule apixaban 5 mg tablet 5 mg PO BID #60 tab 12/03/18 05/11/19 History atorvastatin 40 mg tablet 40 mg PO QPM #90 tab 12/03/18 05/11/19 History ezetimibe 10 mg tablet 10 mg PO HS #90 tab 12/03/18 05/11/19 History furosemide 20 mg tablet 20 mg PO HS #90 tab 12/03/18 05/11/19 History lansoprazole 30 mg capsule,delayed 30 mg PO QDD cap 12/03/18 05/11/19 History release metformin 500 mg tablet 1,000 mg PO BID tab 12/03/18 05/11/19 History metoprolol succinate 50 mg 50 mg PO QAM #30 tab 12/03/18 05/11/19 History tablet,extended release 24 hr potassium chloride 20 mEq 20 meq PO BID #90 tab 12/03/18 05/11/19 History tablet,extended release sitagliptin 100 mg tablet 100 mg PO HS tab 12/03/18 05/11/19 History gabapentin 100 mg PO QAM 01/09/19 05/11/19 History finasteride 5 mg tablet 5 mg PO HS #90 tab 01/23/19 05/11/19 History carbidopa 25 mg-levodopa 100 mg 1 tab PO TID 30 Days #90 tab 01/27/19 05/11/19 Rx tablet amiodarone 200 mg PO QAM 03/07/19 05/11/19 History empagliflozin [Jardiance] 10 mg PO DAILY 05/11/19 05/11/19 History Allergies Allergy/AdvReac Type Severity Reaction Status Date / Time oxycodone AdvReac Intermediate "made me Verified 05/11/19 01:51 loopy" Past Med/Surg History Medical History Anticoagulated (Acute) Atrial fibrillation (Chronic) Atrial fibrillation with RVR Benign prostatic hyperplasia with urinary obstruction (Acute) Coagulopathy (Acute) Diabetes mellitus Enlarged prostate (Acute) Fever (Acute) GERD (gastroesophageal reflux disease) Gross hematuria (Acute) Hematuria (Acute) Hematuria (Acute) Hx of von Willebrand's disease (Chronic) Incomplete emptying of bladder (Acute) Mass of urinary bladder (Inactive) Microscopic hematuria (Acute) Neoplasm, bladder (Acute) Paraphimosis Parkinson's disease Prostatitis (Acute) UTI (urinary tract infection) (Acute) Surgical History H/O aortic valve replacement (Resolved) Hx of transurethral resection of prostate (Resolved) Family History Other No pertinent family history Social History Preferred Language: Khmer Communication Ability: Effective Beliefs That Will Affect Care: None marital status: Current Living Situation: Spouse Feels Safe at Home: Yes Smoking Status: Never smoker Hx Alcohol Use: No Hx Substance Use: No Review of Systems See HPI for pertinent positives & negatives. and A total of 10 systems reviewed and were otherwise negative Physical Exam Vital Signs Vital Signs - 24 hr 05/10/19 23:01 05/11/19 00:26 05/11/19 00:28 Temperature 97.5 F L Temperature Source Oral Pulse Rate 91 H 93 H 107 H Pulse Rate [Right Finger] Pulse Rate from SpO2 Sensor Respiratory Rate 16 14 19 Respiratory Effort / Characteristics Non-Labored Spontaneous Respiratory Depth Normal Blood Pressure 124/89 81/57 L Blood Pressure [Left Arm] Blood Pressure Mean 100 62 Blood Pressure Mean [Left Arm] Blood Pressure Position Sitting Blood Pressure Position [Left Arm] Pulse Oximetry 96 Oxygen Delivery Method Room Air Sepsis Recent Fever Within 48 Hours No Sepsis New/Unexplained Change in Mental Status No Sepsis Action Taken by Nursing No Action Required 05/11/19 00:30 05/11/19 00:39 05/11/19 00:40 Temperature Temperature Source Pulse Rate 93 H 104 H 96 H Pulse Rate [Right Finger] Pulse Rate from SpO2 Sensor Respiratory Rate 17 18 13 Respiratory Effort / Characteristics Respiratory Depth Blood Pressure 88/58 L 84/68 L 76/52 L Blood Pressure [Left Arm] Blood Pressure Mean 63 72 53 Blood Pressure Mean [Left Arm] Blood Pressure Position Blood Pressure Position [Left Arm] Pulse Oximetry Oxygen Delivery Method Sepsis Recent Fever Within 48 Hours Sepsis New/Unexplained Change in Mental Status Sepsis Action Taken by Nursing 05/11/19 00:42 05/11/19 00:50 05/11/19 00:54 Temperature Temperature Source Pulse Rate 86 89 88 Pulse Rate [Right Finger] Pulse Rate from SpO2 Sensor Respiratory Rate 18 12 16 Respiratory Effort / Characteristics Respiratory Depth Blood Pressure 78/61 L 80/61 L Blood Pressure [Left Arm] Blood Pressure Mean 65 64 Blood Pressure Mean [Left Arm] Blood Pressure Position Blood Pressure Position [Left Arm] Pulse Oximetry Oxygen Delivery Method Sepsis Recent Fever Within 48 Hours Sepsis New/Unexplained Change in Mental Status Sepsis Action Taken by Nursing 05/11/19 01:00 05/11/19 01:10 05/11/19 01:20 Temperature Temperature Source Pulse Rate 100 H 110 H 101 H Pulse Rate [Right Finger] Pulse Rate from SpO2 Sensor 100 H 99 H 112 H Respiratory Rate 17 16 14 Respiratory Effort / Characteristics Respiratory Depth Blood Pressure 85/63 L 74/52 L 78/58 L Blood Pressure [Left Arm] Blood Pressure Mean 67 67 61 Blood Pressure Mean [Left Arm] Blood Pressure Position Blood Pressure Position [Left Arm] Pulse Oximetry 98 97 96 Oxygen Delivery Method Sepsis Recent Fever Within 48 Hours Sepsis New/Unexplained Change in Mental Status Sepsis Action Taken by Nursing 05/11/19 01:40 05/11/19 01:42 05/11/19 01:50 Temperature Temperature Source Pulse Rate 112 H 104 H Pulse Rate [Right Finger] 103 H Pulse Rate from SpO2 Sensor 99 H 109 H Respiratory Rate 15 16 18 Respiratory Effort / Characteristics Respiratory Depth Blood Pressure 99/64 L 88/64 L Blood Pressure [Left Arm] 99/64 L Blood Pressure Mean 65 74 Blood Pressure Mean [Left Arm] 75 Blood Pressure Position Blood Pressure Position [Left Arm] Lying Pulse Oximetry 98 98 97 Oxygen Delivery Method Room Air Sepsis Recent Fever Within 48 Hours Sepsis New/Unexplained Change in Mental Status Sepsis Action Taken by Nursing 05/11/19 02:00 05/11/19 02:10 05/11/19 02:13 Temperature Temperature Source Pulse Rate 102 H 109 H 118 H Pulse Rate [Right Finger] Pulse Rate from SpO2 Sensor 97 H 101 H 119 H Respiratory Rate 19 18 18 Respiratory Effort / Characteristics Respiratory Depth Blood Pressure 88/63 L 68/60 L 82/65 L Blood Pressure [Left Arm] Blood Pressure Mean 68 63 66 Blood Pressure Mean [Left Arm] Blood Pressure Position Blood Pressure Position [Left Arm] Pulse Oximetry 96 96 98 Oxygen Delivery Method Sepsis Recent Fever Within 48 Hours Sepsis New/Unexplained Change in Mental Status Sepsis Action Taken by Nursing 05/11/19 02:20 05/11/19 02:30 05/11/19 02:40 Temperature Temperature Source Pulse Rate 92 H 91 H 112 H Pulse Rate [Right Finger] Pulse Rate from SpO2 Sensor 101 H 97 H 121 H Respiratory Rate 20 20 18 Respiratory Effort / Characteristics Respiratory Depth Blood Pressure 89/67 L 85/66 L 86/68 L Blood Pressure [Left Arm] Blood Pressure Mean 77 70 69 Blood Pressure Mean [Left Arm] Blood Pressure Position Blood Pressure Position [Left Arm] Pulse Oximetry 97 97 97 Oxygen Delivery Method Sepsis Recent Fever Within 48 Hours Sepsis New/Unexplained Change in Mental Status Sepsis Action Taken by Nursing 05/11/19 02:50 05/11/19 03:00 05/11/19 03:10 Temperature Temperature Source Pulse Rate 87 102 H 101 H Pulse Rate [Right Finger] 99 H Pulse Rate from SpO2 Sensor 93 H 119 H 117 H Respiratory Rate 18 16 13 Respiratory Effort / Characteristics Respiratory Depth Blood Pressure 97/63 L 89/61 L 84/72 L Blood Pressure [Left Arm] Blood Pressure Mean 64 63 74 Blood Pressure Mean [Left Arm] Blood Pressure Position Blood Pressure Position [Left Arm] Pulse Oximetry 96 98 97 Oxygen Delivery Method Sepsis Recent Fever Within 48 Hours Sepsis New/Unexplained Change in Mental Status Sepsis Action Taken by Nursing 05/11/19 03:20 05/11/19 03:21 05/11/19 03:30 Temperature Temperature Source Pulse Rate 103 H 102 H 94 H Pulse Rate [Right Finger] Pulse Rate from SpO2 Sensor 109 H 110 H 93 H Respiratory Rate 17 14 18 Respiratory Effort / Characteristics Respiratory Depth Blood Pressure 94/63 L 94/73 L Blood Pressure [Left Arm] Blood Pressure Mean 69 76 Blood Pressure Mean [Left Arm] Blood Pressure Position Blood Pressure Position [Left Arm] Pulse Oximetry 97 93 97 Oxygen Delivery Method Sepsis Recent Fever Within 48 Hours Sepsis New/Unexplained Change in Mental Status Sepsis Action Taken by Nursing 05/11/19 03:40 05/11/19 03:50 05/11/19 04:00 Temperature Temperature Source Pulse Rate 103 H 111 H 115 H Pulse Rate [Right Finger] Pulse Rate from SpO2 Sensor 128 H 109 H 118 H Respiratory Rate 24 19 21 Respiratory Effort / Characteristics Respiratory Depth Blood Pressure 114/64 101/71 94/73 L Blood Pressure [Left Arm] Blood Pressure Mean 78 81 82 Blood Pressure Mean [Left Arm] Blood Pressure Position Blood Pressure Position [Left Arm] Pulse Oximetry 95 97 97 Oxygen Delivery Method Sepsis Recent Fever Within 48 Hours Sepsis New/Unexplained Change in Mental Status Sepsis Action Taken by Nursing 05/11/19 04:10 Temperature Temperature Source Pulse Rate 86 Pulse Rate [Right Finger] Pulse Rate from SpO2 Sensor 99 H Respiratory Rate 16 Respiratory Effort / Characteristics Respiratory Depth Blood Pressure 93/62 L Blood Pressure [Left Arm] Blood Pressure Mean 67 Blood Pressure Mean [Left Arm] Blood Pressure Position Blood Pressure Position [Left Arm] Pulse Oximetry 97 Oxygen Delivery Method Room Air Sepsis Recent Fever Within 48 Hours Sepsis New/Unexplained Change in Mental Status Sepsis Action Taken by Nursing GENERAL: alert, well appearing, well nourished, no distress, non-toxic EYE EXAM: normal conjunctiva, PERRL and EOM's grossly intact OROPHARYNX: no exudate, no erythema, lips, buccal mucosa, and tongue normal and mucous membranes are moist NECK: supple, no nuchal rigidity, no adenopathy, non-tender LUNGS: Clear to auscultation. Normal chest wall mechanics HEART: LORENZO noted, S1 normal and S2 normal ABDOMEN: abdomen soft, non-tender, normo-active bowel sounds, no masses, no rebound or guarding. BACK: Back is symmetrical on inspection and there is no deformity, no midline tenderness, no CVA tenderness. SKIN: no rashes and no bruising, no petechiae UPPER EXTREMITIES: upper extremities are grossly normal. FROM, nml pulses b/l. LOWER EXTREMITIES: No pitting edema. FROM, nml pulses b/l. NEURO EXAM: Normal sensorium, cranial nerves II-XII grossly intact, normal speech, no gross weakness of arms, no gross weakness of legs. Course Course 2325: The patient was evaluated in room A12. A complete history and physical exam was performed. 005: I reevaluated and updated the patient. Nursing staff placed a garcia catheter and gross hematuria was noted. Genitalia grossly normal as viewed immediately following placement of the garcia for urinary retention. Irrigation was began manually with improvement of hematuria, but not resolution. No large clots noted. Pt is hypotensive at this time, but denies dizziness, cp, headache, sob, or abdominal pain. States pressure in lower abd from urinary retention has resolved since catheter was placed. 0302: I rechecked the patient. He is still hypotensive, but he denies any symptoms. He is finishing his 2nd liter of NSS. His hematuria is worsening agai n. I discussed the results of his CT with him. 0320: Upon reevaluation, the patient is stable. I discussed the findings and the treatment plan with the patient. He expresses agreement and understanding. I spoke with Dr. Brown of the [facility]ist [facility]. The patient will be evaluated for further management. Consultations Consultation #1: I reviewed the patient's case with Dr. Brown - Hospitalist, [facility]. He will evaluate the patient for further management. Time: 03:20 Administered Medications Acetaminophen (Tylenol) 650 mg PO Q4H PRN PRN Reason: Pain or Fever Stop: 06/10/19 05:09 Last Admin: 05/11/19 10:58 Dose: 650 mg Documented by: [id number] Atorvastatin Calcium (Lipitor) 40 mg PO QPM [facility] Stop: 06/10/19 20:59 Last Admin: 05/12/19 20:09 Dose: 40 mg Documented by: [id number] Admin: 05/11/19 21:05 Dose: 40 mg Documented by: [id number] Carbidopa/Levodopa (Sinemet 25/100 Mg) 1 tab PO TID [facility] Stop: 06/10/19 08:59 Last Admin: 05/12/19 20:08 Dose: 1 tab Documented by: [id number] Admin: 05/12/19 12:53 Dose: 1 tab Documented by: [id number] Admin: 05/12/19 08:32 Dose: 1 tab Documented by: [id number] Admin: 05/11/19 21:04 Dose: 1 tab Documented by: [id number] Admin: 05/11/19 14:28 Dose: 1 tab Documented by: [id number] Admin: 05/11/19 08:47 Dose: 1 tab Documented by: [id number] Finasteride (Proscar) 5 mg PO HS [facility] Stop: 06/10/19 20:59 Last Admin: 05/12/19 20:09 Dose: 5 mg Documented by: [id number] Admin: 05/11/19 21:05 Dose: 5 mg Documented by: [id number] Gabapentin (Neurontin) 100 mg PO QAM [facility] Stop: 06/10/19 08:59 Last Admin: 05/12/19 08:33 Dose: 100 mg Documented by: [id number] Admin: 05/11/19 08:47 Dose: 100 mg Documented by: [id number] Ceftriaxone Sodium 1,000 mg/ (Dextrose) 60 mls @ 100 mls/hr IV DAILY [facility]; Protocol Stop: 05/21/19 08:59 Last Infusion: 05/12/19 10:08 Dose: 0 mls/hr Documented by: [id number] Admin: 05/12/19 08:33 Dose: 100 mls/hr Documented by: [id number] Infusion: 05/11/19 09:30 Dose: 0 mls/hr Documented by: [id number] Admin: 05/11/19 08:50 Dose: 100 mls/hr Documented by: [id number] Insulin Aspart (Novolog Flexpen) 0 units SC ACHS [facility] Stop: 06/10/19 16:29 Last Admin: 05/12/19 20:09 Dose: Not Given Documented by: [id number] Cosigned by: [id number] Admin: 05/12/19 17:55 Dose: 6 units Documented by: [id number] Cosigned by: [id number] Admin: 05/12/19 12:52 Dose: 8 units Documented by: [id number] Cosigned by: [id number] Admin: 05/12/19 08:36 Dose: 7 units Documented by: [id number] Cosigned by: [id number] Admin: 05/11/19 21:04 Dose: Not Given Documented by: [id number] Cosigned by: [id number] Admin: 05/11/19 17:38 Dose: 3 units Documented by: [id number] Cosigned by: [id number] Ioversol (Optiray 320 100ml) 95 ml IV ONCE PRN PRN Reason: Interaction Checking Stop: 05/15/19 01:18 Last Admin: 05/11/19 01:19 Dose: 95 ml Documented by: [id number] Metoprolol Succinate (Toprol Xl) 50 mg PO [facility] Stop: 06/11/19 09:29 Last Admin: 05/12/19 10:54 Dose: 50 mg Documented by: [id number] Discontinued Medications Amiodarone HCl (Cordarone) 200 mg PO [facility] Stop: 06/10/19 08:59 Last Admin: 05/12/19 08:32 Dose: 200 mg Documented by: [id number] Admin: 05/11/19 08:46 Dose: 200 mg Documented by: [id number] Sodium Chloride (Nss 1000ml) 500 mls @ 999 mls/hr IV .Q31M ONE Stop: 05/11/19 00:58 Last Infusion: 05/11/19 00:51 Dose: 0 mls/hr Documented by: [id number] Admin: 05/11/19 00:20 Dose: 999 mls/hr Documented by: [id number] Sodium Chloride (Nss) 500 mls @ 999 mls/hr IV .Q31M ONE Stop: 05/11/19 01:41 Last Infusion: 05/11/19 01:31 Dose: 0 mls/hr Documented by: [id number] Admin: 05/11/19 01:00 Dose: 999 mls/hr Documented by: [id number] Sodium Chloride (Nss) 500 mls @ 999 mls/hr IV .Q31M ONE Stop: 05/11/19 02:17 Last Infusion: 05/11/19 02:29 Dose: 0 mls/hr Documented by: [id number] Admin: 05/11/19 01:45 Dose: 999 mls/hr Documented by: [id number] Sodium Chloride (Nss 1000ml) 1,000 mls @ 200 mls/hr IV .Q5H [facility] Stop: 06/10/19 03:29 Last Infusion: 05/11/19 06:22 Dose: 0 mls/hr Documented by: [id number] Admin: 05/11/19 03:58 Dose: 200 mls/hr Documented by: [id number] Potassium Chloride/Sodium Chloride (Normal Saline W/20 Meq Kcl) 20 meq in 1,000 mls @ 125 mls/hr IV .Q8H [facility] Stop: 06/10/19 05:59 Last Admin: 05/11/19 19:04 Dose: Not Given Documented by: [id number] Infusion: 05/11/19 17:02 Dose: 0 mls/hr Documented by: [id number] Admin: 05/11/19 06:24 Dose: 125 mls/hr Documented by: [id number] Insulin Aspart (Novolog Flexpen) 0 units SC Q6 [facility] Stop: 06/10/19 06:59 Last Admin: 05/11/19 12:57 Dose: 3 units Documented by: [id number] Cosigned by: [id number] Admin: 05/11/19 08:03 Dose: Not Given Documented by: [id number] Cosigned by: [id number] Lidocaine (Xylocaine 5% Oint) 1 appln EXT NOW STA Stop: 05/11/19 00:07 Last Admin: 05/11/19 02:30 Dose: Not Given Documented by: [id number] Medical Decision Making Differential Diagnosis Differential diagnoses include: bladder cancer, UTI, prostatitis, ureteral lithiasis, kidney failure, and renal cell carcinoma as well as others were considered. Medical Records Attestation: I reviewed the patient's medical records. Home Medications Current Medication List: was personally reviewed by me Laboratory Data Attestation: I reviewed the patient's lab results. Result diagrams: 05/12/19 05:30 05/12/19 05:30 Lab Results 05/10/19 05/10/19 05/10/19 Range/Units 23:37 23:37 23:50 WBC 7.03 (4.8-10.8) K/uL RBC 4.84 (4.7-6.1) M/uL Hgb 14.1 (14.0-18.0) g/dL Hct 43.6 (42-52) % MCV 90.1 (80-100) fL MCH 29.1 (25-34) pg MCHC 32.3 (32-36) g/dL RDW Std Deviation 45.9 (36.4-46.3) fL RDW Coeff of Tyrese 13.8 (11.5-14.5) % Plt Count 216 (130-400) K/uL MPV 10.3 (7.4-10.4) fL Immature Gran % (Auto) 0.1 % Neut % (Auto) 61.0 % Lymph % (Auto) 21.6 % Lassen % (Auto) 10.2 % Eos % (Auto) 6.7 % Baso % (Auto) 0.4 % Immature Gran # (Auto) 0.01 (0.00-0.02) K/uL Neut # (Auto) 4.28 (1.4-6.5) K/uL Lymph # (Auto) 1.52 (1.2-3.4) K/uL Lassen # (Auto) 0.72 H (0.11-0.59) K/uL Eos # (Auto) 0.47 (0-0.5) K/uL Baso # (Auto) 0.03 (0-0.2) K/uL Sodium 139 (136-145) mmol/L Potassium 4.3 (3.5-5.1) mmol/L Chloride 108 H (98-107) mmol/L Carbon Dioxide 25 (21-32) mmol/L Anion Gap 6.0 (3-11) BUN 24 H (7-18) mg/dl Creatinine 1.33 (0.6-1.4) mg/dl Est Cr Clr Drug Dosing 43.6 ml/min Est GFR ( Amer) 58.5 Est GFR (Non-Af Amer) 50.5 BUN/Creatinine Ratio 17.7 (10-20) Glucose 166 H (70-99) mg/dl Lactate (0.4-2.0) mmol/L Calcium 9.1 (8.5-10.1) mg/dl Total Bilirubin 0.4 (0.2-1) mg/dl AST 15 (15-37) U/L ALT 11 L (12-78) U/L Alkaline Phosphatase 60 (45-117) U/L Total Protein 7.6 (6.4-8.2) gm/dl Albumin 3.9 (3.4-5.0) gm/dl Globulin 3.7 (2.5-4.0) gm/dl Albumin/Globulin Ratio 1.1 (0.9-2) Procalcitonin (0-0.5) ng/ml Urine Color Red Urine Appearance Turbid A (Clear) Urine pH (4.5-7.5) Ur Specific [place] 1.032 (1.000-1.060) Urine Protein (Negative) Urine Glucose (UA) (Negative) Urine Ketones (Negative) Urine Blood (Negative) Urine Nitrite (Negative) Urine Bilirubin (Negative) Urine Urobilinogen (Negative) Ur Leukocyte Esterase (Negative) Urine RBC >30 H (0-4) /hpf Urine WBC 10-30 H (0-5) /hpf Ur Epithelial Cells 0-5 (0-5) /lpf Urine Bacteria Negative (Negative) 05/11/19 05/11/19 Range/Units 02:33 02:33 WBC (4.8-10.8) K/uL RBC (4.7-6.1) M/uL Hgb (14.0-18.0) g/dL Hct (42-52) % MCV (80-100) fL MCH (25-34) pg MCHC (32-36) g/dL RDW Std Deviation (36.4-46.3) fL RDW Coeff of Tyrese (11.5-14.5) % Plt Count (130-400) K/uL MPV (7.4-10.4) fL Immature Gran % (Auto) % Neut % (Auto) % Lymph % (Auto) % Lassen % (Auto) % Eos % (Auto) % Baso % (Auto) % Immature Gran # (Auto) (0.00-0.02) K/uL Neut # (Auto) (1.4-6.5) K/uL Lymph # (Auto) (1.2-3.4) K/uL [place]assen # (Auto) (0.11-0.59) K/uL Eos # (Auto) (0-0.5) K/uL Baso # (Auto) (0-0.2) K/uL Sodium (136-145) mmol/L Potassium (3.5-5.1) mmol/L Chloride (98-107) mmol/L Carbon Dioxide (21-32) mmol/L Anion Gap (3-11) BUN (7-18) mg/dl Creatinine (0.6-1.4) mg/dl Est Cr Clr Drug Dosing ml/min Est GFR ( Amer) Est GFR (Non-Af Amer) BUN/Creatinine Ratio (10-20) Glucose (70-99) mg/dl Lactate 3.1 H* (0.4-2.0) mmol/L Calcium (8.5-10.1) mg/dl Total Bilirubin (0.2-1) mg/dl AST (15-37) U/L ALT (12-78) U/L Alkaline Phosphatase (45-117) U/L Total Protein (6.4-8.2) gm/dl Albumin (3.4-5.0) gm/dl Globulin (2.5-4.0) gm/dl Albumin/Globulin Ratio (0.9-2) Procalcitonin 0.06 (0-0.5) ng/ml Urine Color Urine Appearance (Clear) Urine pH (4.5-7.5) Ur Specific [place] (1.000-1.060) Urine Protein (Negative) Urine Glucose (UA) (Negative) Urine Ketones (Negative) Urine Blood (Negative) Urine Nitrite (Negative) Urine Bilirubin (Negative) Urine Urobilinogen (Negative) Ur Leukocyte Esterase (Negative) Urine RBC (0-4) /hpf Urine WBC (0-5) /hpf Ur Epithelial Cells (0-5) /lpf Urine Bacteria (Negative) Imaging Data Radiologist's Impression: Radiology results as stated below per my review and the radiologist's interpretation: CT ABDOMEN & PELVIS With Contrast: Comparison 12/17/2012. 5mm noncalcified subpleural pulmonary nodule at the left base is again seen, not significantly changed. Aortic and mitral valve replacement and right coronary calcification and/or stent again noted. There is now a 2.5cm lesion at the lower pole the right kidney axial 41 concerning for renal cell carcinoma until proven otherwise. Small nonobstructing right intrarenal stone. The prostate is enlarged elevating the neck of the bladder. Garcia within a collapsed bladder. No hydronephrosis. Gallbladder appears within limits. No bowel dilation or free air. No free fluid. The appendix is not identified, no secondary signs. Radiologist: Callum Rios MD. Blood Pressure Blood Pressure Findings: Low blood pressure Blood Pressure Disposition: further management by hospitalist PADILLA Jaime An order was placed for continuous cardiac monitoring. The monitor shows a rate of 83 with atrial fibrillation rhythm. Pt here well appearing despite gross hematuria and frequency. Pt found to have urinary retention, presumably from blood clots and garcia catheter placed by nursing staff with improvement of symptoms and gross hematuria noted. Labs sent as a precaution due to hx of anticoagulation and comorbid conditions. H/H stable. Pt with long hx of hematuria and follows with urology. Following placement of garcia, pt's BP dropped. This was initially thought to be vasov agal. Pt was asymptomatic but required continued boluses of fluid. After 1 L, pt sent for CT a/p due to concern for possible alternative etiology of hypotension. Renal mass noted which could also be contributing to hematuria. Normal renal function. Urine without evidence of infection. With persistence of hypotension after pt was into 2nd liter despite no symptoms, lactate and procalcitonin added also. Discussed all results with the patient and he verbalized understanding. Case discussed with hospitalist. Into 3rd liter, pt's BP began to improve. I do not suspect sepsis, aaa, dissection, valve failure, CHF, tamponade. Elevated lactate possibly from hypotension or due to use of metformin in addition to hypotension. No evidence of DKA. Impression & Plan Hypotension, Hematuria, Renal cell carcinoma Discharge Plan Visit Data *Final* Discharge Date/Time: 05/11/19 04:48 Chief Complaint: Urinary Symptoms Stated Complaint: URINATING BLOOD ED Provider: Carolina Griffin Discharge Problem: Hypotension, Hematuria, Renal cell carcinoma Patient Disposition: Admitted As Inpatient Discharge Instructions Interventions: ED Discharge Assessment Last Done: 05/11/19 04:48 Discharge Problem: Hypotension Qualifiers: Hypotension type: unspecified hypotension type Qualified Code(s): I95.9 - Hypotension, unspecified Hematuria Qualifiers: Hematuria type: unspecified type Qualified Code(s): R31.9 - Hematuria, unspecified Renal cell carcinoma Qualifiers: Laterality: right Qualified Code(s): C64.1 - Malignant neoplasm of right kidney, except renal pelvis The scribe's documentation has been prepared under my direction and personally reviewed by me in its entirety. I confirm that the note above accurately reflects all work, treatment, procedures, and medical decision making performed by me.
[2019-05-11] MEDS ORDERED: ONDANSETRON INJ 2 MG/ML 2 ML VIAL IV PRN (05:10)
[2019-05-11] MEDS ORDERED: GLUCOSE 40% GEL 15 GM TUBE PO PRN (05:10)
[2019-05-11] MEDS ORDERED: CARBOHYDRATES FOR HYPOGLYCEMIA PO PRN (05:10)
[2019-05-11] MEDS ORDERED: ACETAMINOPHEN 325 MG TAB PO PRN (05:10)
[2019-05-11] MEDS ORDERED: GLUCOSE 10 TABS/TUBE PO PRN (05:10)
[2019-05-11] MEDS ORDERED: GLUCAGON FOR INJ 1 MG VIAL SQ PRN (05:10)
[2019-05-11] MEDS ORDERED: DEXTROSE 50% 50 ML SYRINGE IV PRN (05:10)
[2019-05-11] MEDS: NSS + 20MEQ KCL 20 MEQ/1,000 ML BAG IV SCH ×2 (06:24→19:04)
--- NOTE | 2019-05-11 06:30 | CT Scan Report ---
CT abd pelvis IV con only CT DOSE: 432.81 mGy.cm HISTORY: Hematuria. hematuria, hypotension TECHNIQUE: Multiaxial CT images of the abdomen and pelvis were performed following the use of intrave nous contrast. A dose lowering technique was utilized adhering to the principles of ALARA. COMPARISON STUDY: 12/17/2012 FINDINGS: Stable small nodular density left lung base. Postoperative changes to the cardiac silhouett e and sternum consistent with prior median sternotomy. Liver spleen and pancreas are unremarkable. Left kidney enhances uniformly. Right kidney demonstrates a 2.5 cm heterogeneous exophytic nodule projecting medially from the lower pole right kidney. Neoplasm is considered. Bowel pattern is nonobstructive. There is a Lemus catheter within the bladder. No evidence for lytic or blastic process of the bony structures. IMPRESSION: 1. 2.5 cm heterogeneous exophytic nodule projecting medially from the lower pole right kidney. 2. Neoplasm is the diagnosis of exclusion. 3. Study is otherwise unremarkable. ACT 112: Negative or not required by law. The above report was generated using voice recognition software. It may contain grammatical, syntax or spelling errors. Electronically signed by: Miguel Ángel Gonzalez M.D. 05/11/2019 6:29 AM
[2019-05-11] MEDS ORDERED: Nursing to Pharmacy Communication ONE ×2 (06:42→15:30)
[2019-05-11] MEDS ORDERED: INSULIN ASPART 100 UNITS/ML 3 ML PEN SC SCH (07:30)
[2019-05-11] MEDS: INSULIN ASPART 100 UNITS/ML 3 ML PEN SC SCH ×4 (08:03→21:04)
[2019-05-11] MEDS: AMIODARONE 200 MG TAB PO SCH (08:46)
[2019-05-11] MEDS: GABAPENTIN 100 MG CAP PO SCH (08:47)
[2019-05-11] MEDS: CARBIDOPA/LEVODOPA 25/100MG TAB PO SCH ×3 (08:47→21:04)
[2019-05-11] MEDS: cefTRIAXone SODIUM 1,000 MG in DEXTROSE 5% 50 ML IV SCH (08:50)
--- NOTE | 2019-05-11 10:21 | Urology Consultation ---
Date of Consultation May 11, 2019 Assessment & Plan (1) Paraphimosis: (2) Renal mass, right: (3) Hematuria: (4) Benign prostatic hyperplasia with urinary obstruction: A/P 78-year-old male, known to service with recurrent gross hematuria, anticoagulation for cardiac care, new finding of a 2.5 cm suspicious right lower pole renal mass, BPH and paraphimosis. See procedure note for further details. Lemus catheter exchanged and paraphimosis reduced. Rapid clearing of urine with minimal clots are noted - I suspect no ongoing bleeding but an old bleed as in the past likely related to the patient's BPH and anticoagulation. Prior discussion with Dr. Brown is reviewed -consideration was for the possibility of TURP if persistent, long-term anticoagulation was associated with continued bleeding from the prostate gland. I suspect that this admission will be an argument in favor of TURP in the future if Eliquis cannot be held in the long-term. Would leave the 22 [address] Lemus catheter in place for approximately 1 week for Lemus rest, can arrange for outpatient trial of void. Regarding the patient's right-sided renal mass, seen his comorbidities at 2.5 cm in the short-term observation would be reasonable. Seen the location of the lesion percutaneous biopsy and ablation is also an option. However, it seems to have taken approximately 5 to 6 years to reach the size and the risk of metastatic spread at less than 4 cm should be acceptable per AUA guidelines. No acute intervention is necessary and this is not felt to be the source of the patient's recurrent hematuria. Regarding the patient's paraphimosis, this is well reduced today and phimotic ring is relatively mild. Patient instructed on care of foreskin. Thank you for allowing us to participate in this patient's acute care. We will monitor the patient while he remains admitted. Monitor urine output, irrigate as needed. History of Present Illness Reason for Consultation: Gross hematuria. Attending Physician: Cristian Magana MD History of Present Illness Patient is a pleasant 78-year-old male, well-known to our service, last seen 1 month ago as an outpatient by Dr. Brown who was admitted to the hospital for gross hematuria and clot retention. He has been on longstanding finasteride for his BPH. He is noted to have some transient hypotension associated with his Lemus catheter placement, likely vagal response. His hemoglobin was stable and well within normal limits on admission. Patient has had a history with recurrent gross hematuria and undergone several evaluations including cystoscopy which have demonstrated the prostate is a likely source of his bleeding. No cancer seems to have been found within the bladder. He is noted to have a new right lower pole 2.[address] lesion [address] scan imaging, images personally reviewed, suspicious for malignancy. This is fairly unlikely to be the source of his current ongoing bleeding. On review of the patient's past CT scan imaging, in 2012, a tiny lesion was present at this area likely representing growth over the course of time and increasing suspicion for malignancy. Bladder is noted to be free of clots on current CT imaging with a significantly enlarged prostate gland. Lemus catheter is in good position. He feels better but continues to have passage of clots via his Lemus catheter. 16 Chadian has been placed. Patient's inpatient and outpatient notes are reviewed. Allergies Allergy/AdvReac Type Severity Reaction Status Date / Time oxycodone AdvReac Intermediate "made me Verified 05/11/19 01:51 loopy" Home Medications Home Medications Medication Instructions Recorded Confirmed Type alendronate 70 mg tablet 70 mg PO WE #4 tab 12/03/18 05/11/19 History amlodipine 5 mg-benazepril 10 mg 1 cap PO QAM cap 12/03/18 05/11/19 History capsule apixaban 5 mg tablet 5 mg PO BID #60 tab 12/03/18 05/11/19 History atorvastatin 40 mg tablet 40 mg PO QPM #90 tab 12/03/18 05/11/19 History ezetimibe 10 mg tablet 10 mg PO HS #90 tab 12/03/18 05/11/19 History furosemide 20 mg tablet 20 mg PO HS #90 tab 12/03/18 05/11/19 History lansoprazole 30 mg capsule,delayed 30 mg PO QDD cap 12/03/18 05/11/19 History release metformin 500 mg tablet 1,000 mg PO BID tab 12/03/18 05/11/19 History metoprolol succinate 50 mg 50 mg PO QAM #30 tab 12/03/18 05/11/19 History tablet,extended release 24 hr potassium chloride 20 mEq 20 meq PO BID #90 tab 12/03/18 05/11/19 History tablet,extended release sitagliptin 100 mg tablet 100 mg PO HS tab 12/03/18 05/11/19 History gabapentin 100 mg PO QAM 01/09/19 05/11/19 History finasteride 5 mg tablet 5 mg PO HS #90 tab 01/23/19 05/11/19 History carbidopa 25 mg-levodopa 100 mg 1 tab PO TID 30 Days #90 tab 01/27/19 05/11/19 Rx tablet amiodarone 200 mg PO QAM 03/07/19 05/11/19 History empagliflozin [Jardiance] 10 mg PO DAILY 05/11/19 05/11/19 History Patient History Medical History (Updated 05/11/19 @ 10:55 by Ken Magana MD) Anticoagulated (Acute) Atrial fibrillation (Chronic) Atrial fibrillation with RVR Benign prostatic hyperplasia with urinary obstruction (Acute) Coagulopathy (Acute) Diabetes mellitus Enlarged prostate (Acute) Fever (Acute) GERD (gastroesophageal reflux disease) Gross hematuria (Acute) Hematuria (Acute) Hematuria (Acute) Hx of von Willebrand's disease (Chronic) Incomplete emptying of bladder (Acute) Mass of urinary bladder (Inactive) Microscopic hematuria (Acute) Neoplasm, bladder (Acute) Paraphimosis Parkinson's disease Prostatitis (Acute) UTI (urinary tract infection) (Acute) Surgical History H/O aortic valve replacement (Resolved) Hx of transurethral resection of prostate (Resolved) Social History Preferred Language: [place] Communication Ability: Effective Beliefs That Will Affect Care: None Current Living Situation: Spouse Feels Safe at Home: Yes Smoking Status: Never smoker Hx Alcohol Use: No Hx Substance Use: No Review of Systems Constitutional: no fever and no chills Eyes: no diplopia Ear, Nose, Mouth, Throat: no ear trauma Respiratory: no hemoptysis Cardiovascular: no chest pain Gastrointestinal: no nausea and no vomiting Genitourinary: + as per Subjective / HPI and + hematuria Musculoskeletal: no muscle weakness Integumentary: no acne and no boil Neurologic: no paralysis Psychiatric: no hopelessness Hematologic / Lymphatic: + easy bleeding Allergy / Immunological: no tongue swelling Physical Exam Constitutional: well developed and well nourished; no acute distress Eyes: eyes not dysmorphic ENMT: Ears: no external ear abnormality Neck: trachea midline; no anterior neck swelling Respiratory: no respiratory distress and does not use accessory muscles Cardiovascular: Vessels: radial pulses present Gastrointestinal (Abdomen): Inspection/Auscultation: abdomen not distended Percussion/Palpation: abdomen soft; abdomen nontender Musculoskeletal: Head/Neck/Chest: normocephalic and neck supple Skin: normal turgor Neurologic: awake; not obtunded Psychiatric: Orientation: oriented x 3 Genitourinary: + phimosis Blood around catheter, retracted, phimotic foreskin with paraphimosis, mild edema. Lymphatic: no lymphadenopathy Results & Data Vital Signs (Past 12 Hours) Vital Signs Temp Pulse Pulse Resp BP BP Pulse Ox 05/11/19 07:38 36.4 C L 93 H 16 109/69 97 05/11/19 05:38 36.3 C L 108 H 18 121/79 92 05/11/19 04:48 88 18 107/66 98 05/11/19 04:10 86 16 93/62 L 97 05/11/19 04:00 115 H 21 94/73 L 97 05/11/19 03:50 111 H 19 101/71 97 05/11/19 03:40 103 H 24 114/64 95 05/11/19 03:30 94 H 18 94/73 L 97 05/11/19 03:21 102 H 14 94/63 L 93 05/11/19 03:20 103 H 17 97 05/11/19 03:10 101 H 13 84/72 L 97 05/11/19 03:00 102 H 99 H 16 89/61 L 98 05/11/19 02:50 87 18 97/63 L 96 05/11/19 02:40 112 H 18 86/68 L 97 05/11/19 02:30 91 H 20 85/66 L 97 05/11/19 02:20 92 H 20 89/67 L 97 05/11/19 02:13 118 H 18 82/65 L 98 05/11/19 02:10 109 H 18 68/60 L 96 05/11/19 02:00 102 H 19 88/63 L 96 05/11/19 01:50 104 H 18 88/64 L 97 05/11/19 01:42 103 H 16 99/64 L 98 05/11/19 01:40 112 H 15 99/64 L 98 05/11/19 01:20 101 H 14 78/58 L 96 05/11/19 01:10 110 H 16 74/52 L 97 05/11/19 01:00 100 H 17 85/63 L 98 05/11/19 00:54 88 16 80/61 L 05/11/19 00:50 89 12 78/61 L 05/11/19 00:42 86 18 05/11/19 00:40 96 H 13 76/52 L 05/11/19 00:39 104 H 18 84/68 L 05/11/19 00:30 93 H 17 88/58 L 05/11/19 00:28 107 H 19 05/11/19 00:26 93 H 14 81/57 L 05/10/19 23:01 36.4 C L 91 H 16 124/89 96 Laboratory Results Laboratory Results - last 48 hr 05/10/19 05/10/19 05/10/19 23:37 23:37 23:50 WBC 7.03 RBC 4.84 Hgb 14.1 Hct 43.6 MCV 90.1 MCH 29.1 MCHC 32.3 RDW Std Deviation 45.9 RDW Coeff of Tyrese 13.8 Plt Count 216 MPV 10.3 Immature Gran % (Auto) 0.1 Neut % (Auto) 61.0 Lymph % (Auto) 21.6 [place] % (Auto) 10.2 Eos % (Auto) 6.7 Baso % (Auto) 0.4 Immature Gran # (Auto) 0.01 Neut # (Auto) 4.28 Lymph # (Auto) 1.52 [place] # (Auto) 0.72 H Eos # (Auto) 0.47 Baso # (Auto) 0.03 Sodium 139 Potassium 4.3 Chloride 108 H Carbon Dioxide 25 Anion Gap 6.0 BUN 24 H Creatinine 1.33 Est Cr Clr Drug Dosing 43.6 Est GFR ( Amer) 58.5 Est GFR (Non-Af Amer) 50.5 BUN/Creatinine Ratio 17.7 Glucose 166 H POC Glucose Lactate Calcium 9.1 Total Bilirubin 0.4 AST 15 ALT 11 L Alkaline Phosphatase 60 Total Protein 7.6 Albumin 3.9 Globulin 3.7 Albumin/Globulin Ratio 1.1 Procalcitonin Urine Color Red Urine Appearance Turbid A Urine pH Ur Specific [place] 1.032 Urine Protein Urine Glucose (UA) Urine Ketones Urine Blood Urine Nitrite Urine Bilirubin Urine Urobilinogen Ur Leukocyte Esterase Urine RBC >30 H Urine WBC 10-30 H Ur Epithelial Cells 0-5 Urine Bacteria Negative 05/11/19 05/11/19 05/11/19 02:33 02:33 07:28 WBC RBC Hgb Hct MCV MCH MCHC RDW Std Deviation RDW Coeff of Tyrese Plt Count MPV Immature Gran % (Auto) Neut % (Auto) Lymph % (Auto) [place] % (Auto) Eos % (Auto) Baso % (Auto) Immature Gran # (Auto) Neut # (Auto) Lymph # (Auto) [place] # (Auto) Eos # (Auto) Baso # (Auto) Sodium Potassium Chloride Carbon Dioxide Anion Gap BUN Creatinine Est Cr Clr Drug Dosing Est GFR ( Amer) Est GFR (Non-Af Amer) BUN/Creatinine Ratio Glucose POC Glucose 111 H Lactate 3.1 H* Calcium Total Bilirubin AST ALT Alkaline Phosphatase Total Protein Albumin Globulin Albumin/Globulin Ratio Procalcitonin 0.06 Urine Color Urine Appearance Urine pH Ur Specific [place] Urine Protein Urine Glucose (UA) Urine Ketones Urine Blood Urine Nitrite Urine Bilirubin Urine Urobilinogen Ur Leukocyte Esterase Urine RBC Urine WBC Ur Epithelial Cells Urine Bacteria PG Care Time/CCT Total # of Minutes Spent Total Time Spent with Patient: Total time spent is greater than 50% in coordination of care (as documented) at patient's floor/unit and/or counseling patient: Coding Level of Care Code 05241 Inpt Consult Level 4 Diagnoses Paraphimosis N47.2 Renal mass, right N28.89 Hematuria R31.9 Hematuria type: unspecified type Benign prostatic hyperplasia with urinary obstruction N40.1; N13.8 Procedure: Indwelling 16 Chadian Lemus catheter removed after placement of urethral lidocaine jelly and sterile prep a 22 Chadian coud catheter was placed without resistance or difficulties. 10 cc of sterile water were placed within the balloon. The patient's paraphimosis was reduced without excess difficulties. Using a catheter tip syringe the patient's Lemus was irrigated with greater than 1.5 L of sterile irrigant with return of a moderate volume of clot, rapid clearing of urine. A light rodríguez color was appreciated after completion of irrigation with easy drainage and no difficulties. Patient tolerated the procedure well. He has been covered with intravenous Rocephin per nursing staff. (1) Hematuria Hematuria type: unspecified type Qualified Code(s): R31.9 - Hematuria, unspecified
--- NOTE | 2019-05-11 16:40 | History & Physical Bridge Note ---
Date of Service May 11, 2019 History & Physical Bridge Note Still clearly having hematuria, though clearing off his Eliquis. Some mild Lemus pain, but otherwise comfortable. - Will consult cardiology (home surgical assist is Dr. Borrego). Could he benefit from a Watchman device to avoid further anticoagulation? - Hypotension has resolved. Continue IV fluids. - Continue ceftriaxone for now -> Discuss with urology tomorrow
[2019-05-11] MEDS: FINASTERIDE 5 MG TAB PO SCH (21:05)
[2019-05-11] MEDS: ATORVASTATIN 40 MG TAB PO SCH (21:05)
[2019-05-12 05:53] LABS: Hematocrit (blood only) 39.9 % (42-52); Hemoglobin 12.8 g/dL (14.0-18.0); Mean Corpuscular Hgb Conc 32.1 g/dL (32-36); Mean Corpuscular Volume 90.3 fL (80-100); Mean Platelet Volume 10.7 fL (7.4-10.4); Platelet Count 173 K/uL (130-400); RDW Coefficient of Variation 13.8 % (11.5-14.5); RDW Standard Deviation 45.7 fL (36.4-46.3); Red Blood Count 4.42 M/uL (4.7-6.1); White Blood Count 7.54 K/uL (4.8-10.8)
[2019-05-12 06:21] LABS: Calcium 8.1 mg/dl (8.5-10.1); Creatinine Clr Calc Pharmacy 74.3 ml/min; Est GFR (African American) 99.5; Est GFR (Non-African American) 85.9; Potassium 4.1 mmol/L (3.5-5.1)
[2019-05-12] MEDS: CARBIDOPA/LEVODOPA 25/100MG TAB PO SCH ×3 (08:32→20:08)
[2019-05-12] MEDS: AMIODARONE 200 MG TAB PO SCH (08:32)
[2019-05-12] MEDS: GABAPENTIN 100 MG CAP PO SCH (08:33)
[2019-05-12] MEDS: cefTRIAXone SODIUM 1,000 MG in DEXTROSE 5% 50 ML IV SCH (08:33)
[2019-05-12] MEDS: INSULIN ASPART 100 UNITS/ML 3 ML PEN SC SCH ×4 (08:36→20:09)
--- NOTE | 2019-05-12 09:04 | Cardiology Consultation ---
Date of Consultation May 12, 2019 Assessment & Plan (1) Hematuria: He has hematuria which may be due to his prostate, he will need anticoagulation as noted below, over long-term perhaps other methods such as watchman could be used however that is not a short-term solution. If a TURP is indicated I would recommend consideration to proceed with that. (2) Anticoagulant long-term use: He has been maintained on Eliquis and has had difficulty with recurrent bleeding. This is for atrial fibrillation (embolic risk noted below). Watchman may not be unreasonable for him, it would require anticoagulation for 3 months and after that I believe current practices to use platelet inhibitors. We do not do that here, we could refer him to [facility] for evaluation for that, he could be seen locally for consultation. It does not change our current approach since he has a high chads Vascor and he would need anticoagulation following watchman placement for some months. I would therefore recommend going ahead and starting the anticoagulation as soon as possible. (3) Atrial fibrillation: He is now in permanent atrial fibrillation, I would not use antiarrhythmic therapy. His [id number] score is at least 4, this is not taking into account his coronary artery disease identified at catheterization since the score itself suggests prior NH or peripheral arterial disease or aortic plaque however docume nted coronary disease should convey the same risk. Adding that gives him a score of 5, which gives him a stroke or embolic event risk of 7.2-10 %/year. Clearly should remain on long-term anticoagulation, or some protection from embolic stroke. His heart rate is somewhat fast, it looks like he is not on his metoprolol succinate which he takes at home. I am going to restart it. (4) H/O aortic valve replacement: Clinically his valve is working well, it is a bioprosthetic valve so does not need anticoagulation for the valve. He has not had an echocardiogram since 2018, I had intended to get one prior to his next visit but since he is here I am going to go ahead and order it now. History of Present Illness Reason for Consultation: Hematuria on anticoagulation for AF Attending Physician: Jerald Stapleton History of Present Illness This is a 78 year old male with a history of severe aortic stenosis and moderate mitral regurgitation status post bioprosthetic aortic valve replacement and mitral valve repair at [facility], coronary artery disease (minimal per cardiac cath 02/18/10 prior to AVR), paroxysmal atrial fibrillation (S/P cardioversion in 04/2013; anticoagulated with Coumadin), non-insulin dependent diabetes mellitus, hypertension, hypercholesterolemia, and hematuria. He presented acutely on 03/04/2016 with an irregular heart beat which he noticed when he was feeling his pulse. He had not had any palpitations, syncope, or presyncope, but he had been feeling more short of breath when he exerted himself. He was observed to be in atrial fibrillation with a controlled heart rate. He was started on amiodarone 400 mg daily on 11/26/2015, anticoagulated with warfarin (now on Eliquis) and arrangements made for cardioversion. He remained in atrial fibrillation and underwent cardioversion on 01/27/2016. His amiodarone was reduced to 200 mg daily on 02/16/2016. His beta ruy was tapered and discontinued on 09/29/2016 due to bradycardia. As of May 08, 2017 he was in sinus bradycardia, however on November 28, 2017 he was back in atrial fibrillation. He was on amiodarone 200 mg daily at the time of his November 2017 electrocardiogram. We discussed options of cardioversion, increasing amiodarone or more advanced procedures however elected to wait another several months with the addition of beta-blockade to see how he felt. He remained in atrial fibrillation, he was unaware of the arrhythmia therefore amiodarone was discontinued on February 14, 2018. A 24-hour Holter monitor was done on June 17, 2018 and showed a good overall heart rate. He presents now with pneumaturia, which he has had before. His anticoagulation is on hold. He is also back on amiodarone, he was not on that at home and I do not think he should be on it since we are leaving him in atrial fibrillation. He remains unaware of his arrhythmia. He was identified as having a renal mass, however urology does not feel that that is a cause of bleeding. They feel it is a prostate cause and may be an ongoing problem although perhaps with a TURP it could be controlled. At the moment he is not having bleeding and has no cardiovascular complaints. Allergies Allergy/AdvReac Type Severity Reaction Status Date / Time oxycodone AdvReac Intermediate "made me Verified 05/11/19 01:51 loopy" Home Medications Home Medications Medication Instructions Recorded Confirmed Type alendronate 70 mg tablet 70 mg PO WE #4 tab 12/03/18 05/11/19 History amlodipine 5 mg-benazepril 10 mg 1 cap PO QAM cap 12/03/18 05/11/19 History capsule apixaban 5 mg tablet 5 mg PO BID #60 tab 12/03/18 05/11/19 History atorvastatin 40 mg tablet 40 mg PO QPM #90 tab 12/03/18 05/11/19 History ezetimibe 10 mg tablet 10 mg PO HS #90 tab 12/03/18 05/11/19 History furosemide 20 mg tablet 20 mg PO HS #90 tab 12/03/18 05/11/19 History lansoprazole 30 mg capsule,delayed 30 mg PO QDD cap 12/03/18 05/11/19 History release metformin 500 mg tablet 1,000 mg PO BID tab 12/03/18 05/11/19 History metoprolol succinate 50 mg 50 mg PO QAM #30 tab 12/03/18 05/11/19 History tablet,extended release 24 hr potassium chloride 20 mEq 20 meq PO BID #90 tab 12/03/18 05/11/19 History tablet,extended release sitagliptin 100 mg tablet 100 mg PO HS tab 12/03/18 05/11/19 History gabapentin 100 mg PO QAM 01/09/19 05/11/19 History finasteride 5 mg tablet 5 mg PO HS #90 tab 01/23/19 05/11/19 History carbidopa 25 mg-levodopa 100 mg 1 tab PO TID 30 Days #90 tab 01/27/19 05/11/19 Rx tablet amiodarone 200 mg PO QAM 03/07/19 05/11/19 History empagliflozin [Jardiance] 10 mg PO DAILY 05/11/19 05/11/19 History Patient History Medical History Anticoagulated (Acute) Atrial fibrillation (Chronic) Atrial fibrillation with RVR Benign prostatic hyperplasia with urinary obstruction (Acute) Coagulopathy (Acute) Diabetes mellitus Enlarged prostate (Acute) Fever (Acute) GERD (gastroesophageal reflux disease) Gross hematuria (Acute) Hematuria (Acute) Hematuria (Acute) Hx of von Willebrand's disease (Chronic) Incomplete emptying of bladder (Acute) Mass of urinary bladder (Inactive) Microscopic hematuria (Acute) Neoplasm, bladder (Acute) Paraphimosis Parkinson's disease Prostatitis (Acute) UTI (urinary tract infection) (Acute) Surgical History H/O aortic valve replacement (Resolved) Hx of transurethral resection of prostate (Resolved) Family History (Reviewed 05/12/19 @ 09: by Monster Borrego MD) Other No pertinent family history Social History (Reviewed 05/12/19 @ 09: by Monster Borrego MD) Preferred Language: Latvian Communication Ability: Effective Beliefs That Will Affect Care: None marital status: Current Living Situation: Spouse Feels Safe at Home: Yes Smoking Status: Never smoker Hx Alcohol Use: No Hx Substance Use: No Review of Systems Review of Systems: All systems reviewed & are unremarkable except as noted in HPI & below Physical Exam Physical Exam: Constitutional: Alert, cooperative and in no distress. HEENT: Unremarkable Neck: No jugular venous distention, carotid pulses are irregular but otherwise normal and equal bilaterally without bruits. Pulmonary: Clear to auscultation bilaterally. Cardiac: Irregular rhythm with a grade 2/6 crescendo decrescendo systolic murmur at the base, a grade 2/6 holosystolic murmur at the apex, no gallop or rub. Abdomen: Soft, nontender with normal bowel sounds. Extremities: No edema. Distal pulses intact. Neurologic: No focal findings. Gait is steady. Skin: No rash, ecchymoses or petechiae. Results & Data ([facility]) Vital Signs (Past 12 Hours) Vital Signs Temp Pulse Pulse Pulse Resp BP BP 05/12/19 07:15 36.5 C 113 H 20 104/74 05/12/19 02:44 36.6 C 96 H 16 110/64 05/11/19 23:53 75 05/11/19 23:00 36.8 C 87 17 98/63 L Pulse Ox 05/12/19 07:15 95 05/12/19 02:44 95 05/11/19 23:53 05/11/19 23:00 96 Laboratory Results CBC 05/12/19 Range/Units 05:30 WBC 7.54 (4.8-10.8) K/uL RBC 4.42 L (4.7-6.1) M/uL Hgb 12.8 L (14.0-18.0) g/dL Hct 39.9 L (42-52) % Plt Count 173 (130-400) K/uL Comprehensive Metabolic Panel 05/12/19 Range/Units 05:30 Sodium 139 (136-145) mmol/L Potassium 4.1 (3.5-5.1) mmol/L Chloride 110 H (98-107) mmol/L Carbon Dioxide 23 (21-32) mmol/L BUN 13 (7-18) mg/dl Creatinine 0.78 D (0.6-1.4) mg/dl Glucose 98 (70-99) mg/dl Calcium 8.1 L (8.5-10.1) mg/dl Intake and Output 05/11/19 05/12/19 05/12/19 22:59 06:59 14:59 Intake Total 1320 / 1750 250 / 1750 Output Total 800 / 1800 400 / 1800 Balance 520 / -50 -150 / -50 Intake: IV 1000 / 1060 NORMAL SALINE w/20 MEQ KCL 20 1000 / 1000 meq In 1,000 ml @ 125 mls/hr IV .Q8H [facility] Rx#:[id number] Oral 320 / 690 250 / 690 Output: Urine Amount (Catheter) 800 / 1200 400 / 1200 Lemus/Indwelling 800 / 1200 400 / 1200 Other: Weight 74.8 kg Diagnostic Findings Telemetry: Atrial fibrillation, heart rate is somewhat elevated in the range of 80-110 averaging around 100. PG Care Time/CCT Total # of Minutes Spent Total Time Spent with Patient: Total time spent is greater than 50% in coordination of care (as documented) at patient's floor/unit and/or counseling p atient: Coding Level of Care Code 49102 Initial Inpt Care Lvl 3 Diagnoses Hematuria R31.9 Hematuria type: unspecified type Anticoagulant long-term use Z79.01 Atrial fibrillation I48.91 H/O aortic valve replacement Z95.2 (1) Hematuria Hematuria type: unspecified type Qualified Code(s): R31.9 - Hematuria, unspecified
--- NOTE | 2019-05-12 09:39 | Urology Progress Note ---
Date of Service May 12, 2019 Assessment & Plan (1) Gross hematuria: (2) Benign prostatic hyperplasia with urinary obstruction: (3) Renal mass, right: 78-year-old male, known to service with recurrent gross hematuria, anticoagulation for cardiac care, new finding of a 2.5 cm suspicious right lower pole renal mass, BPH and paraphimosis. -Patient with continued hematuria. -Lemus catheter required hand irrigation this morning by nursing staff due to retention, continue irrigation PRN retention/clots. -Cardiology notes reviewed, appreciate recommendations. -Patient not a candidate to remain off anticoagulation long-term. -Possibility of TURP in future given persistent hematuria with anticoagulants. -Reviewed with Dr. Vivar, if urologic surgical intervention required, will need to be off anticoagulation prior to procedure. -At this time, will continue to monitor hematuria, H&H, and and follow while inpatient. -Regarding right-sided renal mass, see consultation note for tentative plan. Subjective Patient alert, awake, laying in bed. Did experience abdominal discomfort and bladder pressure this am. Per nursing, patient was bladder scanned for over 400 cc. Urine was reported as dark red. Lemus hand-irrigated at that time with clearing of urine without, nursing expressed no clots noted with irrigation. Lemus at time of exam draining clear, light-brown urine. No further abdominal discomfort after irrigation. No penile pain. Denies nausea or vomiting. Denies fevers or chills. Afebrile overnight. Cardiology at bedside - discussion took place regarding patient's need for anticoagulation. Patient requesting to know when he can restart Eliquis and next steps. Hemoglobin today of 12.8 Creatinine 0.78 Denies additional acute urologic concerns today. Review of Systems Constitutional: as per Subjective / HPI; no fever and no chills Gastrointestinal: as per Subjective / HPI; no nausea and no vomiting Genitourinary: + as per Subjective / HPI and + hematuria Hematologic / Lymphatic: as per Subjective / HPI and + easy bleeding Physical Exam Constitutional: well developed and well nourished; no acute distress and not ill appearing Respiratory: normal respiratory effort and able to speak in complete sentences; no respiratory distress and no audible wheezes Gastrointestinal (Abdomen): Inspection/Auscultation: abdomen normal to inspection; abdomen not distended Percussion/Palpation: abdomen soft; abdomen nontender and no guarding Psychiatric: Orientation: alert, oriented x 3 and cooperative Affect: euthymic affect Genitourinary: no CVA tenderness Lemus catheter draining clear, light brown urine without visible clots. Patient uncircumcised. Penile foreskin able to be retracted without significant edema or erythema. Results & Data Vital Signs (Past 12 Hours) Vital Signs Temp Pulse Pulse Pulse Resp BP BP 05/12/19 07:15 36.5 C 113 H 20 104/74 05/12/19 02:44 36.6 C 96 H 16 110/64 05/11/19 23:53 75 05/11/19 23:00 36.8 C 87 17 98/63 L Pulse Ox 05/12/19 07:15 95 05/12/19 02:44 95 05/11/19 23:53 05/11/19 23:00 96 PG Care Time/CCT Total # of Minutes Spent Total Time Spent with Patient: Total time spent is greater than 50% in coordination of care (as documented) at patient's floor/unit and/or counseling patient: Coding Level of Care Code 34433 Subseq Hosp Care Lvl 2 Diagnoses Gross hematuria R31.0 Benign prostatic hyperplasia with urinary obstruction N40.1; N13.8 Renal mass, right N28.89
[2019-05-12] MEDS: METOPROLOL SUCC 50MG EXT REL TAB PO SCH (10:54)
--- NOTE | 2019-05-12 11:10 | XCELERA ---
[id number] \\[email or web address]\[id number]}___[id number]
[2019-05-12] MEDS: ATORVASTATIN 40 MG TAB PO SCH (20:09)
[2019-05-12] MEDS: FINASTERIDE 5 MG TAB PO SCH (20:09)
--- NOTE | 2019-05-12 21:27 | Hospitalist Progress Note ---
Date of Service May 12, 2019 Assessment & Plan (1) Gross hematuria: Patient and report patient has had gross hematuria on and off over the past 11 years. He presented with gross hematuria. Continue to Hold Eliquis. Continue Bladder irrigation. Follow urine culture and sensitivity. Continue ceftriaxone 1 g IV daily. Appreciate urology input (2) Renal mass, right: 2.5 cm lower pole right kidney lesion which is new compared to CT of 2013. Unclear if this is known to urology, whom will be consulted. Most likely source of gross hematuria. NPO except essential medications (3) Hypotension: Patient's blood pressure did drop into the systolic mid 80s. Occurred after placement of Lemus catheter and bladder irrigation. Pressure has recovered to the 110s after 2 L of normal saline. Continue IV fluid rehydration, and follow blood pressure closely. (4) Neoplasm, bladder: Known history of bladder neoplasm. (5) Atrial fibrillation with RVR: Continue amiodarone 200 mg p.o. daily. Due to low blood pressure, will be holding the following: Amlodipine/benazepril, metoprolol succinate, potassium chloride. Continue amiodarone 200 mg daily (6) Prostatitis: BPH with LUTS/prostatitis/history of transurethral resection of prostate- Continue IV fluids. 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 Borrego, to help with timing of anticoagulation return. Eliquis will be held until restarted by cardiology (10) Hx of von Willebrand's disease: Noted, following platelets serially (11) Diabetes mellitus: Patient will be n.p.o. We will hold Jardiance, metformin and sitagliptin. Patient Accu-Cheks before meals and at bedtime/every 6 hours, with NovoLog coverage for scale (12) Parkinson's disease: Continue carbidopa levodopa 25/100, 1 tablet p.o. 3 times daily (13) GERD (gastroesophageal reflux disease): Continue pantoprazole 40 mg p.o. daily Admission and Anticipated Discharge Date Admission Date: May 11, 2019 Subjective Patient reports feeling well. He denies any new symptoms at this time. He has had episodes of hematuria today as per nursing staff. Review of Systems Review of Systems: The patient denies chest pain, palpitations, shortness of breath, dyspnea on exertion, cough, lower extremity swelling, sore throat, fevers, chills, sweats, weight change, fatigue, nausea, vomiting, diarrhea , constipation, abdominal pain, pelvic pain, blood in stool, dysuria, ightheadedness, dizziness, headache, memory loss, loss of consciousness, rash, imbalance, focal or generalized weakness, numbness or tingling in arms or legs, generalized arthralgias or myalgias, neck pain, or night sweats. The review of systems is otherwise negative other than for that already noted above, and at least 10 systems have been reviewed. Physical Exam Physical Exam: The patient is awake, alert and oriented 3, well developed and well nourished, normocephalic and atraumatic, lying in bed and in no acute distress. HEENT--PERRL, EOMI, mucous membranes and oropharynx dry. Neck--supple. No JVD. No bruits. Thyroid normal, trachea midline, no adenopathy. Heart--normal S1 and S2. No murmurs, rubs or gallops. Lungs--clear bilaterally, no respiratory distress, no accessory muscle use. Abdomen--normal bowel sounds and soft. Nontender. Nondistended. Extremities--no cyanosis or clubbing. No edema. Dermatologic--normal skin turgor, normal color, no abnormal lymph nodes, no rash. Neurologic--cranial nerves II through XII grossly intact. Rheumatologic--normal range of motion. Psychiatric--normal affect. Results & Data ([facility]) Vital Signs (Past 12 Hours) Vital Signs Temp Pulse Resp BP BP Pulse Ox 05/12/19 18:40 36.7 C 109 H 18 123/82 97 05/12/19 14:49 36.7 C 89 18 104/66 95 05/12/19 11:03 36.8 C 95 H 18 125/76 97 05/12/19 10:53 111/80 PG Care Time/CCT Total # of Minutes Spent Total Time Spent with Patient: Total time spent is greater than 50% in coordination of care (as documented) at patient's floor/unit and/or counseling patient: Coding Level of Care Code 73750 Subseq Hosp Care Lvl 3 Diagnoses Gross hematuria R31.0 Renal mass, right N28.89 Hypotension I95.9 Hypotension type: unspecified hypotension type Neoplasm, bladder D49.4 Atrial fibrillation with RVR I48.91 Prostatitis N41.9 Enlarged prostate N40.0 Hx of transurethral resection of prostate Z98.890; Z90.79 H/O aortic valve replacement Z95.2 Hx of von Willebrand's disease Z86.2 Diabetes mellitus E11.9 Parkinson's disease G20 GERD (gastroesophageal reflux disease) K21.9 (1) Hypotension Hypotension type: unspecified hypotension type Qualified Code(s): I95.9 - Hypotension, unspecified
[2019-05-13] MEDS: CARBIDOPA/LEVODOPA 25/100MG TAB PO SCH ×3 (07:35→21:12)
[2019-05-13] MEDS: METOPROLOL SUCC 50MG EXT REL TAB PO SCH (07:36)
[2019-05-13] MEDS: GABAPENTIN 100 MG CAP PO SCH (07:36)
[2019-05-13] MEDS: cefTRIAXone SODIUM 1,000 MG in DEXTROSE 5% 50 ML IV SCH (08:50)
[2019-05-13] MEDS: INSULIN ASPART 100 UNITS/ML 3 ML PEN SC SCH ×4 (08:52→20:56)
--- NOTE | 2019-05-13 10:00 | Cardiology Progress Note ---
Date of Service May 13, 2019 Assessment & Plan (1) Hematuria: He has hematuria which may be due to his prostate, he will need anticoagulation as noted below, over long-term perhaps other methods such as watchman could be used however that is not a short-term solution. If a TURP is indicated I would recommend consideration to proceed with that. I understand that is tentatively scheduled for this Sunday, hopefully we can start anticoagulation as soon as possible after that procedure. I am going to schedule him for a follow-up visit next week following his TURP. (2) Anticoagulant long-term use: He has been maintained on Eliquis and has had difficulty with recurrent urinary bleeding. This is for atrial fibrillation (embolic risk noted below). A Watchman device may not be unreasonable for him, it would require anticoagulation for 3 months and after that I believe current practice is to use platelet inhibitors. We do not implant that device here, we could refer him to [facility] for evaluation for that, he could be seen locally for consultation. It does not change our current approach since he has a high [id number] score and he would need anticoagulation following watchman placement for some months. I would therefore recommend going ahead with plans for TURP and starting the anticoagulation as soon as possible afterwards. I can then refer him to [facility] for evaluation for a watchman in case that is a better option over the long run. (3) Atrial fibrillation: He is now in permanent atrial fibrillation, I would not use antiarrhythmic therapy. His [id number] score is at least 4, this is not taking into account his coronary artery disease identified at catheterization since the score itself is based on prior TN or peripheral arterial disease or aortic plaque, however documented coronary disease should convey the same risk. Adding that gives him a score of 5, which gives him a stroke or embolic event risk of 7.2-10 %/year. Clearly he should remain on long-term anticoagulation, or some other protection from embolic stroke. I restarted his outpatient metoprolol succinate yesterday, his heart rate is still a little bit fast but I think it is adequate for the time being and would continue the current dose until we are done with his procedures, etc. (4) H/O aortic valve replacement: Clinically his valve is working well, it is a bioprosthetic valve so does not need anticoagulation for the valve. His echocardiogram shows normal function of the valve, as well as normal LV function. Admission and Anticipated Discharge Date Admission Date: May 11, 2019 Subjective He is feeling well today, he has no cardiovascular symptoms and he tells me that his urine has not been bloody. He has no TIA or stroke symptoms. Physical Exam Physical Exam: Constitutional: Alert, cooperative and in no distress. HEENT: Unremarkable Neck: No jugular venous distention, carotid pulses are irregular but otherwise normal and equal bilaterally without bruits. Pulmonary: Clear to auscultation bilaterally. Cardiac: Irregular rhythm with a grade 2/6 crescendo decrescendo systolic murmur at the base, a grade 2/6 holosystolic murmur at the apex, no gallop or rub. Abdomen: Soft, nontender with normal bowel sounds. Extremities: No edema. Distal pulses intact. Neurologic: No focal findings. Gait is steady. Skin: No rash, ecchymoses or petechiae. Results & Data ([facility]) Vital Signs (Past 12 Hours) Vital Signs Temp Pulse Pulse Resp BP Pulse Ox 05/13/19 07:13 36.6 C 101 H 18 142/77 H 97 05/13/19 04:42 36.6 C 88 20 124/82 95 05/13/19 01:26 118 H 05/12/19 23:38 36.4 C L 94 H 20 127/72 92 Laboratory Results Intake and Output 05/12/19 05/13/19 05/13/19 22:59 06:59 14:59 Intake Total 300 / 620 160 / 160 Output Total 1200 / 2100 525 / 525 Balance -900 / -1480 -365 / -365 Intake: IV 60 / 60 Rocephin 1,000 mg In D5w 50 ml 60 / 60 @ 100 mls/hr IV DAILY [facility] Rx#: [id number] Oral 300 / 560 100 / 100 Output: Urine Amount (Catheter) 1200 / 1200 525 / 525 Lemus/Indwelling 1200 / 1200 525 / 525 Other: Weight 68.9 kg Diagnostic Findings Telemetry: Atrial fibrillation with a reasonably well-controlled rate, although borderline high at times. Echocardiogram: Done May 12, 2019 and shows his left ventricular function is normal, his aortic valve is functioning well with minimal insufficiency and he has mild mitral insufficiency. PG Care Time/CCT Total # of Minutes Spent Total Time Spent with Patient: Total time spent is greater than 50% in coordination of care (as documented) at patient's floor/unit and/or counseling patient: Coding Level of Care Code 62339 Subseq Hosp Care Lvl 3 Diagnoses Hematuria R31.9 Hematuria type: unspecified type Anticoagulant long-term use Z79.01 Atrial fibrillation I48.91 H/O aortic valve replacement Z95.2 (1) Hematuria Hematuria type: unspecified type Qualified Code(s): R31.9 - Hematuria, unspecified
--- NOTE | 2019-05-13 10:20 | Urology Progress Note ---
Date of Service May 13, 2019 Assessment & Plan (1) Gross hematuria: (2) Benign prostatic hyperplasia with urinary obstruction: (3) Renal mass, right: 78-year-old male, known to service with recurrent gross hematuria, anticoagulation for cardiac care, new finding of a 2.5 cm suspicious right lower pole renal mass, BPH and paraphimosis. -Patient with improvement in hematuria. -Garcia catheter now draining clear yellow urine. -Remains off anticoagulation, cardiology notes reviewed and recommendations appreciated. -Patient not a candidate to remain off anticoagulation long-term. -Plan for TURP in future given persistent hematuria with anticoagulants. -Reviewed case with Dr. Blevins. Options for management of hematuria include GL-TURP versus cysto, fulg, TURP. -Patient considering options and agreeable. -Will coordinate with cardiology and primary team options for surgical intervention, Sunday being soonest possible given last dose of Eliquis was Sunday evening. -Will tentatively add patient to OR schedule Sunday with Dr. Blevins given cardiology is agreeable to holding Eliquis until procedure. -Plan to discharge home with garcia catheter, teach conversion on leg bag. -If primary team feels he is stable for discharge, will have patient follow-up outpatient with our service tomorrow 05/14. -Regarding right-sided renal mass, see consultation note for tentative plan. Subjective Patient alert, awake, laying in bed. Feeling well overall. Denies abdominal pain or pressure. Denies nausea or vomiting, appetite is well. Denies fevers or chills. Remains afebrile. Patient reports he has not required catheter hand irrigation since yesterday morning - did verify this with nursing. Garcia catheter now draining clear yellow urine. He reports his last dose of Eliquis was Sunday evening. Urine Culture final - more than three types of organisms present, all high counts mixed probable skin ivelisse. Currently on IV Ceftriaxone. Denies acute urologic concerns today. Review of Systems Constitutional: as per Subjective / HPI; no fever and no chills Gastrointestinal: as per Subjective / HPI; no nausea and no vomiting Genitourinary: + as per Subjective / HPI Hematologic / Lymphatic: as per Subjective / HPI Physical Exam Constitutional: well developed and well nourished; no acute distress and not ill appearing Respiratory: normal respiratory effort and able to speak in complete sentences; no respiratory distress and no audible wheezes Gastrointestinal (Abdomen): Inspection/Auscultation: abdomen normal to inspection; abdomen not distended Percussion/Palpation: abdomen soft; abdomen nontender and no guarding Psychiatric: Orientation: alert, oriented x 3 and cooperative Affect: euthymic affect Genitourinary: no CVA tenderness Garcia catheter draining clear yellow urine. Patient uncircumcised. Penile foreskin able to be retracted without significant edema or erythema. Results & Data Vital Signs (Past 12 Hours) Vital Signs Temp Pulse Pulse Resp BP Pulse Ox 05/13/19 07:13 36.6 C 101 H 18 142/77 H 97 05/13/19 04:42 36.6 C 88 20 124/82 95 05/13/19 01:26 118 H 05/12/19 23:38 36.4 C L 94 H 20 127/72 92 PG Care Time/CCT Total # of Minutes Spent Total Time Spent with Patient: Total time spent is greater than 50% in coordination of care (as documented) at patient's floor/unit and/or counseling patient: Coding Level of Care Code 03507 Subseq Hosp Care Lvl 2 Diagnoses Gross hematuria R31.0 Benign prostatic hyperplasia with urinary obstruction N40.1; N13.8 Renal mass, right N28.89
--- NOTE | 2019-05-13 13:53 | XRay Report ---
XR chest 1V portable HISTORY: 78 years-old Male Preop preoperative exam. No acute chest complaints COMPARISON: Chest radiograph 07/27/2015, CT abdomen and pelvis 05/11/2019 TECHNIQUE: Portable AP view of the chest FINDINGS: Prior median sternotomy. Prosthetic mitral valve. Mild cardiomegaly. Calcified plaque of the thoracic aortic arch. No pneumothorax, pleural effusion, focal airspace consolidation or overt pulmonary romina a. Multiple healed remote right-sided rib fractures. Chronic appearing widening of the right AC joint . Degenerative changes of the shoulders and spine. IMPRESSION: No acute process. ACT 112: Negative or not required by law. The above report was generated using voice recognition software. It may contain grammatical, syntax o r spelling errors. Electronically signed by: Lloyd Robledo M.D. 05/13/2019 1:51 PM
[2019-05-13] MEDS: ATORVASTATIN 40 MG TAB PO SCH (21:12)
[2019-05-13] MEDS: FINASTERIDE 5 MG TAB PO SCH (21:12)
--- NOTE | 2019-05-13 22:31 | Hospitalist Progress Note ---
Date of Service May 13, 2019 Assessment & Plan (1) Gross hematuria: Patient and report patient has had gross hematuria on and off over the past 11 years. He presented with gross hematuria. His urine has began to clear up. Continue to Hold Eliquis. Continue Bladder irrigation. Follow urine culture and sensitivity. Continue ceftriaxone 1 g IV daily. Appreciate urology input Plan is for TURP on sunday. Hoepfully can discharge on 05/14. (2) Renal mass, right: 2.5 cm lower pole right kidney lesion which is new compared to CT of 2013. Unclear if this is known to urology, whom will be consulted. Most likely source of gross hematuria. (3) Hypotension: Patient's blood pressure did drop into the systolic mid 80s. Occurred after placement of Lemus catheter and bladder irrigation. Pressure has recovered to the 110s after 2 L of normal saline. Continue IV fluid rehydration, and follow blood pressure closely. (4) Neoplasm, bladder: Known history of bladder neoplasm. (5) Atrial fibrillation with RVR: Continue amiodarone 200 mg p.o. daily. Due to low blood pressure, will be holding the following: Amlodipine/benazepril, metoprolol succinate, potassium chloride. Continue amiodarone 200 mg daily (6) Prostatitis: BPH with LUTS/prostatitis/history of transurethral resection of prostate- Continue IV fluids. 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 Borrego, to help with timing of anticoagulation return. Eliquis will be held until restarted by cardiology (10) Hx of von Willebrand's disease: Noted, following platelets serially (11) Diabetes mellitus: Patient will be n.p.o. We will hold Jardiance, metformin and sitagliptin. Patient Accu-Cheks before meals and at bedtime/every 6 hours, with NovoLog coverage for scale (12) Parkinson's disease: Continue carbidopa levodopa 25/100, 1 tablet p.o. 3 times daily (13) GERD (gastroesophageal reflux disease): Continue pantoprazole 40 mg p.o. daily Admission and Anticipated Discharge Date Admission Date: May 11, 2019 Subjective 78 yo male reports feeling well. He has no new symptoms. His urine appears to be more clear. Review of Systems Review of Systems: All systems reviewed & are unremarkable except as noted in HPI & below Physical Exam Physical Exam: The patient is awake, alert and oriented 3, well developed and well nourished, normocephalic and atraumatic, lying in bed and in no acute distress. HEENT--PERRL, EOMI, mucous membranes and oropharynx dry. Neck--supple. No JVD. No bruits. Thyroid normal, trachea midline, no adenopathy. Heart--normal S1 and S2. No murmurs, rubs or gallops. Lungs--clear bilaterally, no respiratory distress, no accessory muscle use. Abdomen--normal bowel sounds and soft. Nontender. Nondistended. Extremities--no cyanosis or clubbing. No edema. Dermatologic--normal skin turgor, normal color, no abnormal lymph nodes, no tyrell h. Neurologic--cranial nerves II through XII grossly intact. Rheumatologic--normal range of motion. Psychiatric--normal affect. Results & Data ([facility]) Vital Signs (Past 12 Hours) Vital Signs Temp Pulse Pulse Resp BP Pulse Ox 05/13/19 21:17 74 05/13/19 19:44 36.5 C 85 20 141/79 H 97 05/13/19 15:52 36.3 C L 84 20 144/86 H 96 05/13/19 11:15 36.4 C L 95 H 16 104/67 96 PG Care Time/CCT Total # of Minutes Spent Total Time Spent with Patient: Total time spent is greater than 50% in coordination of care (as documented) at patient's floor/unit and/or counseling patient: Coding Level of Care Code 72481 Subseq Hosp Care Lvl 2 Diagnoses Gross hematuria R31.0 Renal mass, right N28.89 Hypotension I95.9 Hypotension type: unspecified hypotension type Neoplasm, bladder D49.4 Atrial fibrillation with RVR I48.91 Prostatitis N41.9 Enlarged prostate N40.0 Hx of transurethral resection of prostate Z98.890; Z90.79 H/O aortic valve replacement Z95.2 Hx of von Willebrand's disease Z86.2 Diabetes mellitus E11.9 Parkinson's disease G20 GERD (gastroesophageal reflux disease) K21.9 Time Spent (min) 25 (1) Hypotension Hypotension type: unspecified hypotension type Qualified Code(s): I95.9 - Hypotension, unspecified
[2019-05-14] MEDS: GABAPENTIN 100 MG CAP PO SCH (08:12)
[2019-05-14] MEDS: cefTRIAXone SODIUM 1,000 MG in DEXTROSE 5% 50 ML IV SCH (08:12)
[2019-05-14] MEDS: METOPROLOL SUCC 50MG EXT REL TAB PO SCH (08:12)
[2019-05-14] MEDS: CARBIDOPA/LEVODOPA 25/100MG TAB PO SCH ×3 (08:13→20:52)
[2019-05-14] MEDS: INSULIN ASPART 100 UNITS/ML 3 ML PEN SC SCH ×4 (08:14→20:52)
[2019-05-14] MEDS: ATORVASTATIN 40 MG TAB PO SCH (20:50)
[2019-05-14] MEDS: FINASTERIDE 5 MG TAB PO SCH (20:51)
--- NOTE | 2019-05-14 21:56 | Hospitalist Progress Note ---
Date of Service May 14, 2019 Assessment & Plan (1) Gross hematuria: Hematuria secondary to possibly malignant Renal mass, right: Patient and report patient has had gross hematuria on and off over the past 11 years. He presented with gross hematuria. His urine has began to clear up. Continue to Hold Eliquis. Continue Bladder irrigation. Follow urine culture and sensitivity. Continue ceftriaxone 1 g IV daily. Appreciate urology input Plan is for TURP on sunday. states she cant take patient home. Will obtain a PT/OT evaluation and will monitor. (2) Renal mass, right: 2.5 cm lower pole right kidney lesion which is new compared to CT of 2013. Unclear if this is known to urology, whom will be consulted. Most likely source of gross hematuria. (3) Hypotension: Resolved. (4) Neoplasm, bladder: Known history of bladder neoplasm. (5) Atrial fibrillation with RVR: Continue amiodarone 200 mg p.o. daily. Due to low blood pressure, will be holding the following: Amlodipine/benazepril, metoprolol succinate, potassium chloride. Continue amiodarone 200 mg daily (6) Prostatitis: BPH with LUTS/prostatitis/history of transurethral resection of prostate- Continue IV fluids. 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 Borrego, to help with timing of anti coagulation return. Eliquis will be held until restarted by cardiology (10) Hx of von Willebrand's disease: Noted, following platelets serially (11) Diabetes mellitus: continue insulin sliding scale (12) Parkinson's disease: Continue carbidopa levodopa 25/100, 1 tablet p.o. 3 times daily (13) GERD (gastroesophageal reflux disease): Continue pantoprazole 40 mg p.o. daily Admission and Anticipated Discharge Date Admission Date: May 11, 2019 Subjective Patient reports feeling well. He has no new complaints. Review of Systems Review of Systems: All systems reviewed & are unremarkable except as noted in HPI & below Physical Exam Physical Exam: The patient is awake, alert and oriented 3, well developed and well nourished, normocephalic and atraumatic, lying in bed and in no acute distress. HEENT--PERRL, EOMI, mucous membranes and oropharynx dry. Neck--supple. No JVD. No bruits. Thyroid normal, trachea midline, no adenopathy. Heart--normal S1 and S2. No murmurs, rubs or gallops. Lungs--clear bilaterally, no respiratory distress, no accessory muscle use. Abdomen--normal bowel sounds and soft. Nontender. Nondistended. Extremities--no cyanosis or clubbing. No edema. Dermatologic--normal skin turgor, normal color, no abnormal lymph nodes, no rash. Neurologic--cranial nerves II through XII grossly intact. Rheumatologic--normal range of motion. Psychiatric--normal affect. Results & Data ([facility]) Vital Signs (Past 12 Hours) Vital Signs Temp Pulse Resp BP BP Pulse Ox 05/14/19 19:00 36.5 C 107 H 18 149/93 H 95 05/14/19 14:57 36.7 C 96 H 18 115/71 96 05/14/19 12:00 36.5 C 74 24 105/67 98 PG Care Time/CCT Total # of Minutes Spent Total Time Spent with Patient: Total time spent is greater than 50% in coordination of care (as documented) at patient's floor/unit and/or counseling patient: Coding Level of Care Code 91179 Subseq Hosp Care Lvl 2 Diagnoses Gross hematuria R31.0 Renal mass, right N28.89 Hypotension I95.9 Hypotension type: unspecified hypotension type Neoplasm, bladder D49.4 Atrial fibrillation with RVR I48.91 Prostatitis N41.9 Enlarged prostate N40.0 Hx of transurethral resection of prostate Z98.890; Z90.79 H/O aortic valve replacement Z95.2 Hx of von Willebrand's disease Z86.2 Diabetes mellitus E11.9 Parkinson's disease G20 GERD (gastroesophageal reflux disease) K21.9 Time Spent (min) 25 (1) Hypotension Hypotension type: unspecified hypotension type Qualified Code(s): I95.9 - Hypotension, unspecified
--- NOTE | 2019-05-15 08:06 | Urology Progress Note ---
Date of Service May 15, 2019 Assessment & Plan (1) Gross hematuria: (2) Benign prostatic hyperplasia with urinary obstruction: (3) Renal mass, right: 78-year-old male, known to service with recurrent gross hematuria, anticoagulation for cardiac care, new finding of a 2.5 cm suspicious right lower pole renal mass, BPH and paraphimosis. -Patient with continued improvement in hematuria. -Lemus catheter draining clear yellow urine. -Continues to remain off anticoagulation for upcoming procedure. -Plan for photoselective vaporization of the prostate using Greenlight laser tomorrow given persistent hematuria with anticoagulants. -Continue to hold anticoagulants pre-procedure. -NPO after midnight. -Chest x-ray and EKG in chart. -Patient currently covered with IV Ceftriaxone. -Discussed plan with patient's , Rosaura, she is also in agreement with plan. -Continue to follow -Regarding right-sided renal mass, see consultation note for tentative plan. Subjective Patient alert, awake, laying in bed. Feeling well overall. Denies abdominal pain or pressure. Denies nausea or vomiting. Denies fevers or chills. Remains afebrile. Per nursing, patient requested hand irrigation last evening. Nursing noted one small clot. Has not required irrigation overnight. Lemus catheter draining clear yellow urine. Has remained off anticoagulation. Urine Culture final - more than three types of organisms present, all high counts mixed probable skin ivelisse. Currently on IV Ceftriaxone. Denies acute urologic concerns today. Review of Systems Constitutional: as per Subjective / HPI; no fever and no chills Gastrointestinal: as per Subjective / HPI; no nausea and no vomiting Genitourinary: + as per Subjective / HPI Physical Exam Constitutional: well developed and well nourished; no acute distress and not ill appearing Respiratory: normal respiratory effort and able to speak in complete sentences; no respiratory distress and no audible wheezes Gastrointestinal (Abdomen): Inspection/Auscultation: abdomen normal to inspection; abdomen not distended Percussion/Palpation: abdomen soft; abdomen nontender and no guarding Psychiatric: Orientation: alert, oriented x 3 and cooperative Affect: euthymic affect Genitourinary: no CVA tenderness Lemus catheter draining clear yellow urine. Patient uncircumcised. Penile foreskin able to be retracted without significant edema or erythema. Results & Data Vital Signs (Past 12 Hours) Vital Signs Temp Pulse Pulse Resp BP BP Pulse Ox 05/15/19 07:43 36.5 C 75 16 129/82 97 05/15/19 07:25 81 05/15/19 03:00 36.5 C 77 20 115/76 96 05/14/19 22:00 36.6 C 83 18 109/73 96 PG Care Time/CCT Total # of Minutes Spent Total Time Spent with Patient: Total time spent is greater than 50% in coordination of care (as documented) at patient's floor/unit and/or counseling patient: Coding Level of Care Code 52737 Subseq Hosp Care Lvl 2 Diagnoses Gross hematuria R31.0 Benign prostatic hyperplasia with urinary obstruction N40.1; N13.8 Renal mass, right N28.89
[2019-05-15] MEDS: CARBIDOPA/LEVODOPA 25/100MG TAB PO SCH ×3 (08:18→20:43)
[2019-05-15] MEDS: GABAPENTIN 100 MG CAP PO SCH (08:18)
[2019-05-15] MEDS: cefTRIAXone SODIUM 1,000 MG in DEXTROSE 5% 50 ML IV SCH (08:18)
[2019-05-15] MEDS: METOPROLOL SUCC 50MG EXT REL TAB PO SCH (08:18)
[2019-05-15] MEDS: INSULIN ASPART 100 UNITS/ML 3 ML PEN SC SCH ×4 (08:20→20:43)
--- NOTE | 2019-05-15 09:55 | Cardiology Progress Note ---
Date of Service May 15, 2019 Assessment & Plan (1) Hematuria: He has hematuria which may be due to his prostate, he will need anticoagulation as noted below, over the long-term perhaps other methods such as Watchman atrial appendage occlusion device could be used however that is not a s hort-term solution. If a TURP is indicated I would recommend proceeding with that. I understand that is scheduled for this Sunday, hopefully we can start anticoagulation as soon as possible after that procedure. I am going to schedule him for a follow-up visit next week following his TURP. (2) Anticoagulant long-term use: He has been maintained on Eliquis and has had difficulty with recurrent urinary bleeding. Anticoagulation is for atrial fibrillation (embolic risk noted below). A Watchman atrial appendage occlusion device may not be unreasonable for him, it would require anticoagulation for 3 months following placement and after that I believe current practice is to use platelet inhibitors. We do not implant that device here, we could refer him to [facility] for evaluation for that, he could be seen locally for consultation. It does not change our current approach since he has a high [id number] score and he would need anticoagulation following placement for some months. I would therefore recommend going ahead with plans for TURP and starting the anticoagulation as soon as possible afterwards. I can then refer him to [facility] for evaluation for a watchman in case that is a better option over the long run. (3) Atrial fibrillation: He is now in permanent atrial fibrillation, I would not use antiarrhythmic therapy. His [id number] score is at least 4, this is not taking into account his coronary artery disease identified at catheterization (since the score itself is based on prior NC or peripheral arterial disease or aortic plaque, however documented coronary disease should convey the same risk). Adding that gives him a score of 5, which gives him a stroke or embolic event risk of 7.2-10 %/year. Clearly he should remain on long-term anticoagulation, or some other protection from embolic stroke. His heart rate is still a little bit fast but I think it is adequate for the time being and would continue the current dose until we are done with his procedures, etc. (4) H/O aortic valve replacement: Clinically his valve is working well, it is a bioprosthetic valve so does not need anticoagulation for the valve. His echocardiogram shows normal function of the valve, as well as normal LV function. Admission and Anticipated Discharge Date Admission Date: May 11, 2019 Subjective He is feeling well today, he is going to stay in the hospital until his TURP tomorrow. He denies bleeding. He has no stroke or TIA symptoms. Physical Exam Physical Exam: Constitutional: Alert, cooperative and in no distress. HEENT: Unremarkable Neck: No jugular venous distention, carotid pulses are irregular but otherwise normal and equal bilaterally without bruits. Pulmonary: Clear to auscultation bilaterally. Cardiac: Irregular rhythm with a grade 2/6 crescendo decrescendo systolic murmur at the base, a grade 2/6 holosystolic murmur at the apex, no gallop or rub. Abdomen: Soft, nontender with normal bowel sounds. Extremities: No edema. Distal pulses intact. Neurologic: No focal findings. Gait is steady. Skin: No rash, ecchymoses or petechiae. Results & Data ([facility]) Vital Signs (Past 12 Hours) Vital Signs Temp Pulse Pulse Resp BP BP Pulse Ox 05/15/19 07:43 36.5 C 75 16 129/82 97 05/15/19 07:25 81 05/15/19 03:00 36.5 C 77 20 115/76 96 05/14/19 22:00 36.6 C 83 18 109/73 96 Laboratory Results Intake and Output 05/14/19 05/15/19 05/15/19 22:59 06:59 14:59 Intake Total 560 / 1220 360 / 1220 60 / 60 Output Total 775 / 1675 350 / 1675 Balance -215 / -455 10 / -455 60 / 60 Intake: IV 60 / 60 Rocephin 1,000 mg In D5w 50 ml 60 / 60 @ 100 mls/hr IV DAILY KLEVER Rx#: [id number] Oral 560 / 1160 360 / 1160 Output: Urine Amount (Catheter) 775 / 1125 350 / 1125 Lemus/Indwelling 775 / 1125 350 / 1125 Other: Weight 71.5 kg Diagnostic Findings Telemetry: Atrial fibrillation, rate controlled reasonably well between about 80 and 110. Less than 100 the majority of the time. PG Care Time/CCT Total # of Minutes Spent Total Time Spent with Patient: Total time spent is greater than 50% in coordination of care (as documented) at patient's floor/unit and/or counseling patient: Coding Level of Care Code 27526 Subseq Hosp Care Lvl 2 Diagnoses Hematuria R31.9 Hematuria type: unspecified type Anticoagulant long-term use Z79.01 Atrial fibrillation I48.91 H/O aortic valve replacement Z95.2 (1) Hematuria Hematuria type: unspecified type Qualified Code(s): R31.9 - Hematuria, unspecified
--- NOTE | 2019-05-15 19:21 | Anesthesiology Consultation ---
Date of Service May 15, 2019 Assessment & Plan Chart Review Chart Review: Acceptable Risk for Surgery and Patient NOT seen in Pre Admission Testing Consults Requested none ASA ASA4 Proposed Anesthesia Anesthesia Type: General History Surgery Operation Date: 05/16/19 12:30 Proposed Procedures p Cystoscopy, Greenlight, Possible Clot Evacuation and Fulguration - Tong Blevins, DO Height/Weight Height: 5 ft 8 in Weight: 71.5 kg Allergies Allergy/AdvReac Type Severity Reaction Status Date / Time oxycodone AdvReac Intermediate "made me Verified 05/15/19 07:36 loopy" Medications Home Medications Medication Instructions Recorded Confirmed Last Taken alendronate 70 mg tablet 70 mg PO WE #4 tab 12/03/18 05/15/19 05/07/19 atorvastatin 40 mg tablet 40 mg PO QPM #90 tab 12/03/18 05/15/19 05/10/19 ezetimibe 10 mg tablet 10 mg PO HS #90 tab 12/03/18 05/15/19 05/10/19 furosemide 20 mg tablet 20 mg PO HS #90 tab 12/03/18 05/15/19 05/10/19 lansoprazole 30 mg capsule,delayed 30 mg PO PM cap 12/03/18 05/15/19 05/10/19 release metformin 500 mg tablet 1,000 mg PO BID tab 12/03/18 05/15/19 05/10/19 metoprolol succinate 50 mg 50 mg PO QAM #30 tab 12/03/18 05/15/19 05/10/19 tablet,extended release 24 hr potassium chloride 20 mEq 20 meq PO BID #90 tab 12/03/18 05/15/19 05/10/19 tablet,extended release sitagliptin 100 mg tablet 100 mg PO HS tab 12/03/18 05/15/19 05/10/19 gabapentin 100 mg PO QAM 01/09/19 05/15/19 05/10/19 finasteride 5 mg tablet 5 mg PO HS #90 tab 01/23/19 05/15/19 05/10/19 carbidopa 25 mg-levodopa 100 mg 1 tab PO TID 30 Days #90 tab 01/27/19 05/15/19 05/10/19 tablet Jardiance 10 mg PO QAM 05/11/19 05/15/19 05/10/19 Active Medications Generic Name Dose Route Start Last Admin Trade Name Freq PRN Reason Stop Dose Admin Acetaminophen 650 mg 05/11/19 05:10 05/11/19 10:58 Tylenol PO 06/10/19 05:09 650 mg Q4H PRN Administration Pain or Fever Atorvastatin Calcium 40 mg 05/11/19 21:00 05/14/19 20:50 Lipitor PO 06/10/19 20:59 40 mg QPM KLEVER Administration Carbidopa/Levodopa 1 tab 05/11/19 09:00 05/15/19 13:54 Sinemet 25/100 Mg PO 06/10/19 08:59 1 tab TID KLEVER Administration Finasteride 5 mg 05/11/19 21:00 05/14/19 20:51 Proscar PO 06/10/19 20:59 5 mg HS KLEVER Administration Gabapentin 100 mg 05/11/19 09:00 05/15/19 08:18 Neurontin PO 06/10/19 08:59 100 mg QAM KLEVER Administration Ceftriaxone Sodium 1,000 mg/ 60 mls @ 100 mls/hr 05/11/19 09:00 05/15/19 09:04 Dextrose IV 05/21/19 08:59 Infused DAILY KLEVER Infusion Protocol Insulin Aspart 0 units 05/11/19 16:30 05/15/19 17:30 Novolog Flexpen SC 06/10/19 16:29 3 units ACHS KLEVER Administration Metoprolol Succinate 50 mg 05/12/19 09:30 05/15/19 08:18 Toprol Xl PO 06/11/19 09:29 50 mg QAM KLEVER Administration Past Medical History Medical History Anticoagulated (Acute) Atrial fibrillation with RVR dx: 2009 >cardioversions x3> per DR. GALICIA CANNOT HAVE ANY MORE Benign prostatic hyperplasia with urinary obstruction (Acute) Cardiac murmur DX CHILD Coagulopathy (Acute) Depression Diabetes mellitus Enlarged prostate (Acute) GERD (gastroesophageal reflux disease) Gross hematuria (Acute) Hematuria (Acute) Hx of von Willebrand's disease (Chronic) no signs of this for several yrs Incomplete emptying of bladder (Acute) Mass of urinary bladder (Inactive) Microscopic hematuria (Acute) Neoplasm, bladder (Acute) Osteoarthritis Paraphimosis Parkinson's disease Prostatitis (Acute) Sleep apnea CPAP UTI (urinary tract infection) (Acute) resolved Exercise / Class Metabolic Activity III < 4 Walking/Shop/Light housework Past Family History Family History Mother Diabetes Sister Diabetes X4 Past Surgical History Surgical History H/O aortic valve replacement (Resolved) FEB 2010> SCOTTY History of colonoscopy History of esophagogastroduodenoscopy (EGD) Hx of hernia repair Hx of transurethral resection of prostate (Resolved) Past Anesthesia History No Hx of Anesthesia Complications and No Family Hx of Anesthesia Complications History of PONV No Hx of PONV and No Hx of Motion Sickness Social History Smoking Status: Never smoker Hx Alcohol Use: No Hx Substance Use: No Physical Exam Vital Signs Last Vital Signs Temp 36.4 C L 05/15/19 16:00 Pulse 89 05/15/19 16:00 Resp 18 05/15/19 16:00 BP 139/80 05/15/19 16:00 Pulse Ox 98 05/15/19 16:00 Testing Laboratory Results 05/12/19 05:30 05/12/19 05:30 Urine Color Red 05/10/19 23:50 Urine Appearance Turbid (Clear) A 05/10/19 23:50 Urine pH (4.5-7.5) 05/10/19 23:50 Ur Specific [place] 1.032 (1.000-1.060) 05/10/19 23:50 Urine Protein (Negative) 05/10/19 23:50 Urine Glucose (UA) (Negative) 05/10/19 23:50 Urine Ketones (Negative) 05/10/19 23:50 Urine Nitrite (Negative) 05/10/19 23:50 Ur Leukocyte Esterase (Negative) 05/10/19 23:50 Urine RBC >30 /hpf (0-4) H 05/10/19 23:50 Urine WBC 10-30 /hpf (0-5) H 05/10/19 23:50 Ur Epithelial Cells 0-5 /lpf (0-5) 05/10/19 23:50 05/10/19 23:50 Urine Culture - Final Urine,Clean Catch More than three types of organisms present, all high counts mixed probable skin ivelisse - No further identifications or sensitivities to follow. 05/15/19 05/15/19 05/15/19 16:42 11:37 07:33 POC Glucose 114 H 252 H 137 H Chest X-Ray Date: 05/13/19 Findings: + NAD, + cardiomegaly, + atherosclerosis of thoracic aorta and + other (prosthetic MV) Echocardiogram Date: 05/12/19 EF: 55 LV Function: normal RWMA: + none Other Findings: + atrial enlargement and + LVH Valvular Disease: + (mild) and + MR (mild)
[2019-05-15] MEDS: FINASTERIDE 5 MG TAB PO SCH (20:43)
[2019-05-15] MEDS: ATORVASTATIN 40 MG TAB PO SCH (20:43)
--- NOTE | 2019-05-15 22:17 | Hospitalist Progress Note ---
Date of Service May 15, 2019 Assessment & Plan (1) Gross hematuria: Hematuria secondary to possibly malignant Renal mass, right: Patient and report patient has had gross hematuria on and off over the past 11 years. He presented with gross hematuria. His urine is better. Continue to Hold Eliquis. Continue Bladder irrigation. Follow urine culture and sensitivity. Continue ceftriaxone 1 g IV daily. Appreciate urology input Plan is for TURP on sunday (which will be tomorrow). Obtained PT/OT eval as was concerned about taking him home. Patient though is awake and alert and oriented. He states that he does not want any home health services at discharge. (2) Renal mass, right: 2.5 cm lower pole right kidney lesion which is new compared to CT of 2013. Unclear if this is known to urology, whom will be consulted. Most likely source of gross hematuria. (3) Hypotension: Resolved. (4) Neoplasm, bladder: Known history of bladder neoplasm. (5) Atrial fibrillation with RVR: Continue amiodarone 200 mg p.o. daily. Due to low blood pressure, will be holding the following: Amlodipine/benazepril, metoprolol succinate, potassium chloride. Continue amiodarone 200 mg daily (6) Prostatitis: BPH with LUTS/prostatitis/history of transurethral resection of prostate- Continue IV fluids. Continue finasteride If blood pressure tolerates would add tamsulosin (7) Enlarged prostate: See above (8) Hx of transurethral resection of prostate: See above (9) H/O aortic valve replacement: History of aortic valve replacement/mitral valve replacement/atrial fibrillation with RVR- We will consult his engineering analyst Dr. Borrego, to help with timing of anticoagulation return. Eliquis will be held until restarted by cardiology (10) Hx of von Willebrand's disease: Noted, following platelets serially (11) Diabetes mellitus: continue insulin sliding scale (12) Parkinson's disease: Continue carbidopa levodopa 25/100, 1 tablet p.o. 3 times daily (13) GERD (gastroesophageal reflux disease): Continue pantoprazole 40 mg p.o. daily Admission and Anticipated Discharge Date Admission Date: May 11, 2019 Subjective 78 yo male reports feeling well. He has no new complaints at this time. Review of Systems Review of Systems: The patient denies chest pain, palpitations, shortness of breath, dyspnea on exertion, cough, lower extremity swelling, sore throat, fevers, chills, sweats, weight change, fatigue, nausea, vomiting, diarrhea , constipation, abdominal pain, pelvic pain, blood in stool, dysuria, ightheadedness, dizziness, headache, memory loss, loss of consciousness, rash, imbalance, focal or generalized weakness, numbness or tingling in arms or legs, generalized arthralgias or myalgias, neck pain, or night sweats. The review of systems is otherwise negative other than for that already noted above, and at least 10 systems have been reviewed. Physical Exam Physical Exam: The patient is awake, alert and oriented 3, well developed and well nourished, normocephalic and atraumatic, lying in bed and in no acute distress. HEENT--PERRL, EOMI, mucous membranes and oropharynx dry. Neck--supple. No JVD. No bruits. Thyroid normal, trachea midline, no adenopathy. Heart--normal S1 and S2. No murmurs, rubs or gallops. Lungs--clear bilaterally, no respiratory distress, no accessory muscle use. Abdomen--normal bowel sounds and soft. Nontender. Nondistended. Extremities--no cyanosis or clubbing. No edema. Dermatologic--normal skin turgor, normal color, no abnormal lymph nodes, no rash. Neurologic--cranial nerves II through XII grossly intact. Rheumatologic--normal range of motion. Psychiatric--normal affect. Results & Data ([facility]) Vital Signs (Past 12 Hours) Vital Signs Temp Pulse Pulse Resp BP Pulse Ox 05/15/19 19:32 36.5 C 76 16 124/78 98 05/15/19 16:00 36.4 C L 89 18 139/80 98 05/15/19 15:29 85 05/15/19 11:26 36.5 C 87 18 126/72 98 PG Care Time/CCT Total # of Minutes Spent Total Time Spent with Patient: Total time spent is greater than 50% in coordination of care (as documented) at patient's floor/unit and/or counseling patient: Coding Level of Care Code 48573 Subseq Hosp Care Lvl 2 Diagnoses Gross hematuria R31.0 Renal mass, right N28.89 Hypotension I95.9 Hypotension type: unspecified hypotension type Neoplasm, bladder D49.4 Atrial fibrillation with RVR I48.91 Prostatitis N41.9 Enlarged prostate N40.0 Hx of transurethral resection of prostate Z98.890; Z90.79 H/O aortic valve replacement Z95.2 Hx of von Willebrand's disease Z86.2 Diabetes mellitus E11.9 Parkinson's disease G20 GERD (gastroesophageal reflux disease) K21.9 Time Spent (min) 25 (1) Hypotension Hypotension type: unspecified hypotension type Qualified Code(s): I95.9 - Hypotension, unspecified
[2019-05-16] MEDS: CARBIDOPA/LEVODOPA 25/100MG TAB PO SCH ×3 (07:44→21:24)
[2019-05-16] MEDS: METOPROLOL SUCC 50MG EXT REL TAB PO SCH (07:44)
[2019-05-16] MEDS: GABAPENTIN 100 MG CAP PO SCH (07:44)
[2019-05-16] MEDS: cefTRIAXone SODIUM 1,000 MG in DEXTROSE 5% 50 ML IV SCH (07:44)
--- NOTE | 2019-05-16 07:50 | Urology Progress Note ---
Date of Service May 16, 2019 Assessment & Plan (1) Benign prostatic hyperplasia with urinary obstruction: A/P 78-year-old male, known to service with recurrent gross hematuria, anticoagulation for cardiac care, new finding of a 2.5 cm suspicious right lower pole renal mass, BPH and paraphimosis. Keep NPO Plan for Greenlight TURP today with Dr. Blevins as scheduled. Risks and benefits reviewed, all questions answered. to arrive to hospital around 10AM. Plan to restart anticoagulation to be determined by Dr Blevins and primary team, likely soon after procedure. Subjective 78yo M admitted with gross hematuria. Now off anticoagulation x 6 days ( last done 05/10 evening) No new issues or concerns. He is aware he is planned for GLTURP procedure today. Garcia draining clear yellow, tolerating well. Labs and VSS stable. Able to reposition self in bed, ambulating minimally. Review of Systems Review of Systems: All systems reviewed & are unremarkable except as noted in HPI & below Physical Exam Physical Exam: A&Ox3 Resp rate reg abd soft, nontender garcia draining clear yellow Results & Data Vital Signs (Past 12 Hours) Vital Signs Temp Pulse Pulse Resp BP Pulse Ox 05/16/19 03:00 36.6 C 96 H 20 122/87 97 05/16/19 00:08 89 05/15/19 23:45 36.4 C L 90 18 125/85 96 PG Care Time/CCT Total # of Minutes Spent Total Time Spent with Patient: Total time spent is greater than 50% in coordination of care (as documented) at patient's floor/unit and/or counseling patient: Coding Level of Care Code 06344 Subseq Hosp Care Lvl 2 Diagnoses Benign prostatic hyperplasia with urinary obstruction N40.1; N13.8
[2019-05-16] MEDS: INSULIN ASPART 100 UNITS/ML 3 ML PEN SC SCH ×4 (08:35→21:18)
[2019-05-16] MEDS ORDERED: ePHEDrine sulfate 50 MG/ML AMP IV PRN ×2 (12:43→13:05)
[2019-05-16] MEDS ORDERED: ONDANSETRON INJ 2 MG/ML 2 ML VIAL IV PRN ×2 (12:43→13:05)
[2019-05-16] MEDS ORDERED: HYDROmorphone INJ 2 MG/ML SYR/VIAL IV PRN ×2 (12:43→13:05)
[2019-05-16] MEDS ORDERED: ATROPINE SULFATE 0.1 MG/ML 10ML SYR IV PRN ×2 (12:43→13:05)
[2019-05-16] MEDS ORDERED: PROMETHAZINE HCL 12.5 MG in SODIUM CHLORIDE 0.9% 50 ML IV PRN ×2 (12:43→13:05)
[2019-05-16] MEDS ORDERED: fentaNYL citrate 100 MCG/2 ML VIAL IV PRN (13:05)
[2019-05-16] MEDS ORDERED: CEFAZOLIN 2000MG 2,000 MG/15 ML SYR IV ONE (13:46)
[2019-05-16] MEDS ORDERED: BELLADONNA/OPIUM SUPP 60 MG SUPP PR PRN (14:52)
--- NOTE | 2019-05-16 16:57 | Operative Report ---
PG Post Operative Report Pre & Post Diagnosis Operation Date: 05/16/19 12:30 Pre-Op Diagnosis: Gross Hematuria Post-Op Diagnosis: Gross Hematuria I identified the patient and participated in the time-out.: Yes Procedure Operation Date: 05/16/19 12:30 Actual Procedures p Cystoscopy, Photoselective Vaporization with laser enucleation of Prostate using Greenlight Laser, Transuretheral Resection of prostate; Clot Evacuation and Fulguration(Not Applicable) - Tong Blevins DO Surgeon Tong Blevins, II, DO Local Delivery Driver None Estimated Blood Loss 10 Findings Consistent with Post-Op Diagnosis Extremely Large Prostate with obstruction due to massive median lobe. Specimens 1. Lateral lobes of prostate 2. Median lobe Prostate adenoma. Drains 22Fr Catheter Anesthesia Type General Complications none Disposition Disposition: Recovery Room Indications Patient with obstruction due to prostate enlargement with severe gross hematuria. Risks and benefits discussed at length. Description of Procedure Patient was consented and brought back to the operating room. Patient was placed under anesthesia in the supine position and moved to the dorsal lithotomy position. Patient was prepped and draped in the regular sterile fashion. A time out was completed. A 30degree Cystoscope was placed into the bladder and the entire bladder was examined. The UO's were identified as well as the bladder neck, trigone, dome, and the other important landmarks. Clot was irrigated and evacuated. Bleeding varicosity in yadira bladder and bladder neck were fulgurated. The prostatic urethra and large lobes/adenoma was assessed and the veru and bladder neck identified and area/size was assessed. The cystoscope with laser bridge and the Greenlight laser fiber were selected. Starting at the 5 and 7 o'clock positions, a channel was created from bladder neck to the veru. Sweeping from distal to proximal and from left to right, the entire massive median lobe was enucleated. Adenoma pieces were enucleated and displaced into the bladder. All bleeding was controlled. A transurethral scope was placed with a fine bipolar loop. The adenoma pieces were resected in the bladder to morselate the large lobe and these were sent as the median lobe prostate chips. The transurethral bipolar loop was then used to resected from 11 and 1 oclock sweeping down to resect the very large kissing lateral lobes. The Specimen was removed and sent for analysis. The resection bed and any bleeding areas were fulgurated/cauterized and the entire area inspected. All bleeding was controlled. The bladder was inspected a final time. The bladder was emptied and irrigated. All specimen and debris was removed. The scope was removed with the bladder partially full. Due to the massive size of the prostate enucleation and resection and vaporization were a prolonged process. A catheter was placed and balloon elevated. This was easily irrigated. The patient was cleaned, aroused from anesthesia, and transferred to the pacu in stable condition having tolerated the procedure well with no complications. I was present and participated in all aspects of the procedure. The patient will be monitored in the PACU until transferred. I attest to the content of the Intraoperative Record and any orders documented therein. Any exceptions are noted below.
[2019-05-16] MEDS: fentaNYL citrate 100 MCG/2 ML VIAL IV PRN ×4 (17:19→17:44)
--- NOTE | 2019-05-16 17:22 | Anesthesiology Progress Note ---
Date of Service May 16, 2019 Anesthesia Post Procedure Vital Signs Vital Signs: Temp Pulse Pulse Pulse Resp BP BP 05/16/19 12:32 36.4 C L 97 H 18 118/93 05/16/19 11:49 36.2 C L 96 H 18 109/70 05/16/19 08:12 36.4 C L 61 20 126/88 05/16/19 03:00 36.6 C 96 H 20 122/87 05/16/19 00:08 89 05/15/19 23:45 36.4 C L 90 18 125/85 05/15/19 19:32 36.5 C 76 16 124/78 Pulse Ox 05/16/19 12:32 97 05/16/19 11:49 97 05/16/19 08:12 94 05/16/19 03:00 97 05/16/19 00:08 05/15/19 23:45 96 05/15/19 19:32 98 Transfer of Care Handoff Completed per policy Notes Mental Status: alert / awake / arousable and participated in evaluation Patient Amnestic to Procedure: Yes Nausea / Vomiting: adequately controlled Pain: adequately controlled Airway Patency, RR, SpO2: stable & adequate BP & HR: stable & adequate Hydration State: stable & adequate Anesthetic Complications: no major complications apparent and Pt Satisfied with anesthetic care
[2019-05-16] MEDS ORDERED: METOPROLOL TARTRATE 1 MG/ML VIAL IV ONE (17:36)
[2019-05-16] MEDS ORDERED: METOPROLOL TARTRATE 1 MG/ML VIAL IV STA ×2 (17:43→20:57)
[2019-05-16] MEDS ORDERED: HYDROmorphone INJ 2 MG/ML SYR/VIAL ONE (17:49)
--- NOTE | 2019-05-16 18:12 | Anesthesiology Progress Note ---
Date of Service May 16, 2019 Anesthesia Post Procedure Vital Signs Vital Signs: Temp Pulse Pulse Pulse Pulse Resp BP 05/16/19 18:05 36.8 C 111 H 14 05/16/19 17:55 122 H 17 05/16/19 17:45 103 H 12 05/16/19 17:38 128 H 141/126 H 05/16/19 17:35 129 H 14 05/16/19 17:25 120 H 12 05/16/19 17:15 129 H 18 05/16/19 17:07 36.5 C 109 H 14 05/16/19 12:32 36.4 C L 97 H 18 05/16/19 11:49 36.2 C L 96 H 18 05/16/19 08:12 36.4 C L 61 20 05/16/19 03:00 36.6 C 96 H 20 05/16/19 00:08 89 05/15/19 23:45 36.4 C L 90 18 05/15/19 19:32 36.5 C 76 16 BP BP Pulse Ox 05/16/19 18:05 152/105 H 99 05/16/19 17:55 164/120 H 97 05/16/19 17:45 141/105 H 97 05/16/19 17:38 05/16/19 17:35 141/126 H 100 05/16/19 17:25 155/111 H 99 05/16/19 17:15 140/110 H 97 05/16/19 17:07 141/101 H 100 05/16/19 12:32 118/93 97 05/16/19 11:49 109/70 97 05/16/19 08:12 126/88 94 05/16/19 03:00 122/87 97 05/16/19 00:08 05/15/19 23:45 125/85 96 05/15/19 19:32 124/78 98 Pain Intensity Penis: Pain Intensity: 4 Transfer of Care Handoff Completed per policy Notes Mental Status: alert / awake / arousable Patient Amnestic to Procedure: Yes Nausea / Vomiting: adequately controlled Pain: adequately controlled Airway Patency, RR, SpO2: stable & adequate BP & HR: stable & adequate Hydration State: stable & adequate Anesthetic Complications: no major complications apparent Notes: Patient in AFib in recovery, rate controlled to preoperative level and variability with metoprolol and fentanyl. Denies chest pain or dyspnea. BP adequate. He will be on medical floor with telemetry.
[2019-05-16] MEDS: ATORVASTATIN 40 MG TAB PO SCH (21:18)
[2019-05-16] MEDS: FINASTERIDE 5 MG TAB PO SCH (21:18)
--- NOTE | 2019-05-16 22:20 | Hospitalist Progress Note ---
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 He presented with gross hematuria. His urine is better. Continue to Hold Eliquis. Continue Bladder irrigation. Follow urine culture and sensitivity. Continue ceftriaxone 1 g IV daily. Appreciate urology input Plan is for TURP which will be later today.. Obtained PT/OT eval as was concerned about taking him home. Patient though is awake and alert and oriented. He states that he does not want any home health services at discharge. Anticipate discharge will likely be on . (2) Renal mass, right: 2.5 cm lower pole right kidney lesion which is new compared to CT of 2013. Unclear if this is known to urology, whom will be consulted. Most likely source of gross hematuria. (3) Hypotension: Resolved. (4) Neoplasm, bladder: Known history of bladder neoplasm. (5) Atrial fibrillation with RVR: Continue amiodarone 200 mg p.o. daily. On metoprolol succinate Continue amiodarone 200 mg daily (6) Prostatitis: BPH with LUTS/prostatitis/history of transurethral resection of prostate- Continue IV fluids. Continue finasteride (7) Enlarged prostate: See above (8) Hx of transurethral resection of prostate: See above (9) H/O aortic valve replacement: History of aortic valve replacement/mitral valve replacement/atrial fibrillation with RVR- We will consult his hand button splitter Dr. Borrego, to help with timing of antico agulation return. Eliquis will be held until restarted by cardiology (10) Hx of von Willebrand's disease: Noted, following platelets serially (11) Diabetes mellitus: continue insulin sliding scale (12) Parkinson's disease: Continue carbidopa levodopa 25/100, 1 tablet p.o. 3 times daily (13) GERD (gastroesophageal reflux disease): Continue pantoprazole 40 mg p.o. daily Admission and Anticipated Discharge Date Admission Date: May 11, 2019 Subjective Patient reports doing well. He has no new complaints. He is awaiting his TURP procedure which will be later today. Review of Systems Review of Systems: All systems reviewed & are unremarkable except as noted in HPI & below Physical Exam Physical Exam: The patient is awake, alert and oriented 3, well developed and well nourished, normocephalic and atraumatic, lying in bed and in no acute distress. HEENT--PERRL, EOMI, mucous membranes and oropharynx dry. Neck--supple. No JVD. No bruits. Thyroid normal, trachea midline, no adenopathy. Heart--normal S1 and S2. No murmurs, rubs or gallops. Lungs--clear bilaterally, no respiratory distress, no accessory muscle use. Abdomen--normal bowel sounds and soft. Nontender. Nondistended. Extremities--no cyanosis or clubbing. No edema. Dermatologic--normal skin turgor, normal color, no abnormal lymph nodes, no rash. Neurologic--cranial nerves II through XII grossly intact. Rheumatologic--normal range of motion. Psychiatric--normal affect. Results & Data ([facility]) Vital Signs (Past 12 Hours) Vital Signs Temp Pulse Pulse Pulse Pulse Resp BP 05/16/19 21:30 36.2 C L 124 H 19 05/16/19 21:17 133 H 05/16/19 20:30 36.2 C L 142 H 20 05/16/19 19:20 36.2 C L 120 H 22 05/16/19 19:05 36.3 C L 127 H 18 05/16/19 18:30 36.8 C 122 H 14 05/16/19 18:15 112 H 12 05/16/19 18:05 36.8 C 111 H 14 05/16/19 17:55 122 H 17 05/16/19 17:45 103 H 12 05/16/19 17:38 128 H 141/126 H 05/16/19 17:35 129 H 14 05/16/19 17:25 120 H 12 05/16/19 17:15 129 H 18 05/16/19 17:07 36.5 C 109 H 14 05/16/19 12:32 36.4 C L 97 H 18 05/16/19 11:49 36.2 C L 96 H 18 BP Pulse Ox 05/16/19 21:30 115/83 97 05/16/19 21:17 05/16/19 20:30 160/107 H 96 05/16/19 19:20 132/96 99 05/16/19 19:05 156/112 H 100 05/16/19 18:30 136/99 100 05/16/19 18:15 137/107 H 100 05/16/19 18:05 152/105 H 99 05/16/19 17:55 164/120 H 97 05/16/19 17:45 141/105 H 97 05/16/19 17:38 05/16/19 17:35 141/126 H 100 05/16/19 17:25 155/111 H 99 05/16/19 17:15 140/110 H 97 05/16/19 17:07 141/101 H 100 05/16/19 12:32 118/93 97 05/16/19 11:49 109/70 97 PG Care Time/CCT Total # of Minutes Spent Total Time Spent with Patient: Total time spent is greater than 50% in coordination of care (as documented) at patient's floor/unit and/or counseling patient: Coding Level of Care Code 17026 Subseq Hosp Care Lvl 2 Diagnoses Gross hematuria R31.0 Renal mass, right N28.89 Hypotension I95.9 Hypotension type: unspecified hypotension type Neoplasm, bladder D49.4 Atrial fibrillation with RVR I48.91 Prostatitis N41.9 Enlarged prostate N40.0 Hx of transurethral resection of prostate Z98.890; Z90.79 H/O aortic valve replacement Z95.2 Hx of von Willebrand's disease Z86.2 Diabetes mellitus E11.9 Parkinson's disease G20 GERD (gastroesophageal reflux disease) K21.9 Time Spent (min) 25 (1) Hypotension Hypotension type: unspecified hypotension type Qualified Code(s): I95.9 - Hypotension, unspecified
[2019-05-17] MEDS: CARBIDOPA/LEVODOPA 25/100MG TAB PO SCH ×3 (08:03→20:44)
[2019-05-17] MEDS: cefTRIAXone SODIUM 1,000 MG in DEXTROSE 5% 50 ML IV SCH (08:03)
[2019-05-17] MEDS: GABAPENTIN 100 MG CAP PO SCH (08:03)
[2019-05-17] MEDS: METOPROLOL SUCC 50MG EXT REL TAB PO SCH (08:03)
[2019-05-17] MEDS: INSULIN ASPART 100 UNITS/ML 3 ML PEN SC SCH ×4 (08:17→20:42)
--- NOTE | 2019-05-17 10:03 | Urology Progress Note ---
Date of Service May 17, 2019 Assessment & Plan (1) Hematuria: Status post GL PVP Clamp CBI now Okay to start anticoagulation againwe will have to hold if he starts to bleed significantly Plan for DC home tomorrow if he progresses appropriately throughout the day today Subjective 78-year-old gentleman with numerous comorbid conditions and hematuria He is now status post greenlight PVP (yesterday) He tolerated CBI overnight without issues He reports he subjectively feels well this morning aside from some hivesuncertain cause of the hives Review of Systems Review of Systems: All systems reviewed & are unremarkable except as noted in HPI & below Physical Exam Physical Exam: Scattered hives Abdomen soft, nontender Urine clear with a very slow CBIseveral small clots throughout the tubing Constitutional: well developed and well nourished Respiratory: no respiratory distress Cardiovascular: Extremities: no pedal edema Gastrointestinal (Abdomen): Inspection/Auscultation: abdomen normal to inspection Results & Data Vital Signs (Past 12 Hours) Vital Signs Temp Pulse Pulse Resp BP Pulse Ox 05/17/19 09:00 91 H 05/17/19 07:51 36.6 C 92 H 20 118/78 96 05/17/19 05:44 36.3 C L 118 H 20 120/70 97 05/17/19 00:07 36.3 C L 113 H 20 111/76 97 05/16/19 23:47 113 H 05/16/19 22:43 36.2 C L 120 H 19 103/71 98 PG Care Time/CCT Total # of Minutes Spent Total Time Spent with Patient: Total time spent is greater than 50% in coordination of care (as documented) at patient's floor/unit and/or counseling patient: Coding Level of Care Code 35551 Subseq Hosp Care Lvl 3 Diagnoses Hematuria R31.9 Hematuria type: unspecified type (1) Hematuria Hematuria type: unspecified type Qualified Code(s): R31.9 - Hematuria, unspecified
[2019-05-17 10:16] LABS: Basophils # (auto) 0.01 K/uL (0-0.2); Basophils % (auto) 0.1 %; Eosinophils # (auto) 0.26 K/uL (0-0.5); Eosinophils % (auto) 2.6 %; Hematocrit (blood only) 38.6 % (42-52); Hemoglobin 12.5 g/dL (14.0-18.0); Immature Granulocytes # (auto) 0.01 K/uL (0.00-0.02); Immature Granulocytes % (auto) 0.1 %; Lymphocytes # (auto) 0.29 K/uL (1.2-3.4); Lymphocytes % (auto) 2.9 %; Mean Corpuscular Hemoglobin 29.1 pg (25-34); Mean Corpuscular Hgb Conc 32.4 g/dL (32-36); Mean Corpuscular Volume 89.8 fL (80-100); Mean Platelet Volume 9.8 fL (7.4-10.4); Monocytes # (auto) 0.66 K/uL (0.11-0.59); Monocytes % (auto) 6.6 %; Neutrophils # (auto) 8.71 K/uL (1.4-6.5); Neutrophils % (auto) 87.7 %; Platelet Count 200 K/uL (130-400); RDW Coefficient of Variation 14.1 % (11.5-14.5); White Blood Count 9.94 K/uL (4.8-10.8)
[2019-05-17 10:32] LABS: BUN Creatinine Ratio 13.5 (10-20); Calcium 8.2 mg/dl (8.5-10.1); Creatinine Clr Calc Pharmacy 55.2 ml/min; Est GFR (African American) 77.9; Est GFR (Non-African American) 67.2; Potassium 4.4 mmol/L (3.5-5.1)
[2019-05-17] MEDS ORDERED: COUGH DROP (SUGAR FREE) LOZ 24 LOZ/1 BOX BUCCAL SCH (11:00)
[2019-05-17] MEDS: COUGH DROP (SUGAR FREE) LOZ 24 LOZ/1 BOX BUCCAL PRN ×2 (11:47→20:48)
--- NOTE | 2019-05-17 12:53 | Anesthesiology Progress Note ---
Date of Service May 17, 2019 Anesthesia Post Procedure Vital Signs Vital Signs: Temp Pulse Pulse Pulse Resp BP BP 05/17/19 09:00 91 H 05/17/19 07:51 36.6 C 92 H 20 118/78 05/17/19 05:44 36.3 C L 118 H 20 120/70 05/17/19 00:07 36.3 C L 113 H 20 111/76 05/16/19 23:47 113 H 05/16/19 22:43 36.2 C L 120 H 19 103/71 05/16/19 21:30 36.2 C L 124 H 19 115/83 05/16/19 21:17 133 H 05/16/19 20:30 36.2 C L 142 H 20 160/107 H 05/16/19 19:20 36.2 C L 120 H 22 132/96 05/16/19 19:05 36.3 C L 127 H 18 156/112 H 05/16/19 18:30 36.8 C 122 H 14 136/99 05/16/19 18:15 112 H 12 137/107 H 05/16/19 18:05 36.8 C 111 H 14 152/105 H 05/16/19 17:55 122 H 17 164/120 H 05/16/19 17:45 103 H 12 141/105 H 05/16/19 17:38 128 H 141/126 H 05/16/19 17:35 129 H 14 141/126 H 05/16/19 17:25 120 H 12 155/111 H 05/16/19 17:15 129 H 18 140/110 H 05/16/19 17:07 36.5 C 109 H 14 141/101 H Pulse Ox 05/17/19 09:00 05/17/19 07:51 96 05/17/19 05:44 97 05/17/19 00:07 97 05/16/19 23:47 05/16/19 22:43 98 05/16/19 21:30 97 05/16/19 21:17 05/16/19 20:30 96 05/16/19 19:20 99 05/16/19 19:05 100 05/16/19 18:30 100 05/16/19 18:15 100 05/16/19 18:05 99 05/16/19 17:55 97 05/16/19 17:45 97 05/16/19 17:38 05/16/19 17:35 100 05/16/19 17:25 99 05/16/19 17:15 97 05/16/19 17:07 100 Pain Intensity Penis: Pain Intensity: 3 Transfer of Care Handoff Completed per policy Notes Mental Status: alert / awake / arousable and participated in evaluation Patient Amnestic to Procedure: Yes Nausea / Vomiting: adequately controlled Pain: adequately controlled Airway Patency, RR, SpO2: stable & adequate BP & HR: stable & adequate Hydration State: stable & adequate Anesthetic Complications: no major complications apparent and Pt Satisfied with anesthetic care
[2019-05-17] MEDS: POLYETHYLENE (MIRALAX) 17 GM PACK PO SCH (20:38)
[2019-05-17] MEDS: ATORVASTATIN 40 MG TAB PO SCH (20:43)
[2019-05-17] MEDS: APIXABAN 5 MG TABLET PO SCH (20:43)
[2019-05-17] MEDS: FINASTERIDE 5 MG TAB PO SCH (20:43)
--- NOTE | 2019-05-17 22:49 | Hospitalist Progress Note ---
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 He presented with gross hematuria. His urine is better. Continue to Hold Eliquis. Continue Bladder irrigation. Follow urine culture and sensitivity. Continue ceftriaxone 1 g IV daily. Appreciate urology input Plan is for TURP which will be later today.. Obtained PT/OT eval as was concerned about taking him home. Patient though is awake and alert and oriented. He states that he does not want any home health services at discharge. Urology wants to hold him overnight. (2) Renal mass, right: 2.5 cm lower pole right kidney lesion which is new compared to CT of 2013. Unclear if this is known to urology, whom will be consulted. Most likely source of gross hematuria. (3) Hypotension: Resolved. (4) Neoplasm, bladder: Known history of bladder neoplasm. (5) Atrial fibrillation with RVR: Continue amiodarone 200 mg p.o. daily. On metoprolol succinate, HR is mildly elevated. will monitor. Continue amiodarone 200 mg daily. Will restart eliquis and will monitor. (6) Prostatitis: BPH with LUTS/prostatitis/history of transurethral resection of prostate- Continue IV fluids. Continue finasteride (7) Enlarged prostate: See above (8) Hx of transurethral resection of prostate: See above (9) H/O aortic valve replacement: History of aortic valve replacement/mitral valve replacement/atrial fibrillation with RVR- We will consult his rotary furnace operator Dr. Borrego, to help with timing of anticoagulation return. Eliquis will be restarted today. (10) Hx of von Willebrand's disease: Noted, following platelets serially (11) Diabetes mellitus: continue insulin sliding scale (12) Parkinson's disease: Continue carbidopa levodopa 25/100, 1 tablet p.o. 3 times daily (13) GERD (gastroesophageal reflux disease): Continue pantoprazole 40 mg p.o. daily Admission and Anticipated Discharge Date Admission Date: May 11, 2019 Subjective 78 yo male reports feeling well. Review of Systems Review of Systems: All systems reviewed & are unremarkable except as noted in HPI & below Physical Exam Physical Exam: The patient is awake, alert and oriented 3, well developed and well nourished, normocephalic and atraumatic, lying in bed and in no acute distress. HEENT--PERRL, EOMI, mucous membranes and oropharynx dry. Neck--supple. No JVD. No bruits. Thyroid normal, trachea midline, no adenopathy . Heart--normal S1 and S2. No murmurs, rubs or gallops. Lungs--clear bilaterally, no respiratory distress, no accessory muscle use. Abdomen--normal bowel sounds and soft. Nontender. Nondistended. Extremities--no cyanosis or clubbing. No edema. Dermatologic--normal skin turgor, normal color, no abnormal lymph nodes, no rash. Neurologic--cranial nerves II through XII grossly intact. Rheumatologic--normal range of motion. Psychiatric--normal affect. Results & Data ([facility]) Vital Signs (Past 12 Hours) Vital Signs Temp Pulse Pulse Resp BP Pulse Ox 05/17/19 19:15 36.3 C L 81 24 117/76 96 05/17/19 16:01 96 H 05/17/19 15:15 36.4 C L 89 20 94/64 L 98 05/17/19 12:59 36.5 C 112 H 20 107/71 97 PG Care Time/CCT Total # of Minutes Spent Total Time Spent with Patient: Total time spent is greater than 50% in coordination of care (as documented) at patient's floor/unit and/or counseling patient: Coding Level of Care Code 11774 Subseq Hosp Care Lvl 2 Diagnoses Gross hematuria R31.0 Renal mass, right N28.89 Hypotension I95.9 Hypotension type: unspecified hypotension type Neoplasm, bladder D49.4 Atrial fibrillation with RVR I48.91 Prostatitis N41.9 Enlarged prostate N40.0 Hx of transurethral resection of prostate Z98.890; Z90.79 H/O aortic valve replacement Z95.2 Hx of von Willebrand's disease Z86.2 Diabetes mellitus E11.9 Parkinson's disease G20 GERD (gastroesophageal reflux disease) K21.9 Time Spent (min) 25 (1) Hypotension Hypotension type: unspecified hypotension type Qualified Code(s): I95.9 - Hypotension, unspecified
[2019-05-18] MEDS: cefTRIAXone SODIUM 1,000 MG in DEXTROSE 5% 50 ML IV SCH (08:17)
[2019-05-18] MEDS: CARBIDOPA/LEVODOPA 25/100MG TAB PO SCH ×2 (08:17→13:41)
[2019-05-18] MEDS: GABAPENTIN 100 MG CAP PO SCH (08:17)
[2019-05-18] MEDS: METOPROLOL SUCC 50MG EXT REL TAB PO SCH (08:17)
[2019-05-18] MEDS: INSULIN ASPART 100 UNITS/ML 3 ML PEN SC SCH ×2 (08:18→12:49)
[2019-05-18] MEDS: APIXABAN 5 MG TABLET PO SCH (08:18)
[2019-05-18] MEDS: POLYETHYLENE (MIRALAX) 17 GM PACK PO SCH (08:18)
--- NOTE | 2019-05-18 09:59 | Urology Progress Note ---
Date of Service May 18, 2019 Assessment & Plan (1) Benign prostatic hyperplasia with urinary obstruction: Doing very well now Continue catheteroutpatient voiding trial already set up Okay to remain on Eliquis Discharge home today Subjective No issues overnight His CBI remain clamped overnight Urine remained clear He started Eliquis again yesterdayno complications thus far He feels well overall and is anxious to go home Physical Exam Physical Exam: Urine clear with CBI clamped, some old blood within the bag but the tubing is clear Results & Data Vital Signs (Past 12 Hours) Vital Signs Temp Pulse Pulse Resp BP Pulse Ox 05/18/19 07:50 36.6 C 107 H 20 104/67 95 05/18/19 07:28 118 H 05/18/19 04:45 36.8 C 80 20 104/69 96 05/17/19 23:26 36.7 C 113 H 20 102/66 94 05/17/19 23:00 103 H PG Care Time/CCT Total # of Minutes Spent Total Time Spent with Patient: Total time spent is greater than 50% in coor dination of care (as documented) at patient's floor/unit and/or counseling patient: Coding Level of Care Code 17908 Subseq Hosp Care Lvl 3 Diagnoses Benign prostatic hyperplasia with urinary obstruction N40.1; N13.8
[2019-05-18] MEDS ORDERED: METOPROLOL SUCC 50MG EXT REL TAB PO STA (11:21)
[2019-05-19] MEDS ORDERED: METOPROLOL SUCC 50MG EXT REL TAB PO SCH (09:00)
--- NOTE | 2019-05-25 22:35 | Discharge Summary ---
Date of Service May 18, 2019 Admission HPI Per Admitting Provider The patient is a 78-year-old male with a past medical history including gross hematuria, microscopic hematuria, bladder neoplasm, atrial fibrillation, BPH with urinary obstruction, history of aortic valve replacement, history of transurethral resection of the prostate, atrial fibrillation with RVR, history of von Willebrand's disease, prostatitis, history of urinary tract infections. He and his report that he has had gross hematuria off and on for the past 11 years, has been seen by Dr. Brown locally and also by urology at [facility]. His last visit with Dr. Brown was near the end of March. He has had instances where he had to have his Eliquis discontinued briefly and the amiodarone discontinued briefly due to gross hematuria, but most recently has been on both amiodarone and Eliquis, and today noted the acute onset of more significantly brisk blood in urine. Principal Diagnosis hematuria Discharge Exam Constitutional well developed and well nourished; no acute distress and not ill appearing Eyes eyes not dysmorphic Neck normal visual inspection and trachea midline; no anterior neck swelling Respiratory normal respiratory effort and able to speak in complete sentences; no respiratory distress, does not use accessory muscles and no audible wheezes Auscultation: lungs clear to auscultation bilaterally Cardiovascular Rate/Rhythm: regular rate and regular rhythm Vessels: radial pulses present Extremities: no pedal edema Gastrointestinal (Abdomen) Inspection/Auscultation: abdomen normal to inspection; abdomen not distended Percussion/Palpation: abdomen soft; abdomen nontender and no guarding Skin normal turgor Neurologic moves all extremities and awake; not obtunded Psychiatric Orientation: alert, oriented x 3 and cooperative Affect: euthymic affect Lymphatic no lymphadenopathy Discharge Data Allergies Allergy/AdvReac Type Severity Reaction Status Date / Time oxycodone AdvReac Intermediate "made me Verified 05/15/19 07:36 loopy" Consultations 05/11/19 03:27 ED Decision to Admit Stat 05/11/19 05:10 Consult Case Management - Discharge Planning Routine Consult Urology Routine 05/11/19 16:36 Consult Cardiology Routine Procedures Performed Operation Date: 05/16/19 12:30 Actual Procedures p Photoselective Vaporization with laser nucleation of Prostate using Greenlight Laser, Transuretheral Resection of prostate(Not Applicable) - Tong H. 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 He presented with gross hematuria. The hematuria improved with Bladder irrigation. S/P TURP and bladder irrigation Urology cleared patient to retart nanda Obtained PT/OT eval as was concerned about taking him home. Patient though is awake and alert and oriented. He states that he does not want any home health services at discharge. (2) Renal mass, right: 2.5 cm lower pole right kidney lesion which is new compared to CT of 2013. Unclear if this is known to urology, whom will be consulted. Most likely source of gross hematuria. (3) Hypotension: Resolved. (4) Neoplasm, bladder: Known history of bladder neoplasm. (5) Atrial fibrillation with RVR: Continue amiodarone 200 mg p.o. daily. On metoprolol succinate, HR is mildly elevated at 90s intermittentely. will defer to PCP. Continue amiodarone 200 mg daily. will continue eliquis. (6) Prostatitis: BPH with LUTS/prostatitis/history of transurethral resection of prostate- Continue finasteride (7) Enlarged prostate: See above (8) Hx of transurethral resection of prostate: See above (9) H/O aortic valve replacement: History of aortic valve replacement/mitral valve replacement/atrial fibrillation with RVR- Eliquis will be restarted prior to discharge. (10) Hx of von Willebrand's disease: Noted, following platelets serially (11) Diabetes mellitus: continue insulin sliding scale (12) Parkinson's disease: Continue carbidopa levodopa 25/100, 1 tablet p.o. 3 times daily (13) GERD (gastroesophageal reflux disease): Continue pantoprazole 40 mg p.o. daily Total Time Total Time Spent Total Time Spent (In Minutes): 35 Discharge Plan Discharge Items Patient Disposition: Home - Self-Care Reason For Visit: GROSS HEMATURIA, HYPOTENSION Discharge Diagnosis: Gross hematuria Activity: Resume your previous activity Non-emergency contact: Primary Care Provider Call non-emergency contact if: you have any medication questions Follow-up/Referrals: Summer Huitron CRNP [Nurse Practitioner] - 05/14/19 1:00 pm (Please come to urology office today 05/14/19 after you are discharged and before 2:00 pm. ) Lucho Jacques [Primary Care Provider] - 05/27/19 3:30 pm () Diet: Carb Consistent or DM2 and Heart Healthy Addtl Attending Provider Instructions: You have been hospitalized for an acute medical problem. During your stay at [facility], we have made an effort to correct the problem that brought you to the hospital while keeping you as comfortable as possible. Medications were used to bring your condition under control and your discharge instructions will include directions for any medications you should take after leaving the hospital. Please make sure you see your Primary Care Provider as part of your follow up plan. Resume anticoagulant after TURP. F/U with PCP in 1-2 weeks F/U with Urology within 1 month Increased Toprol 100 mg once daily Pending Studies at Discharge: No Stand-Alone Forms: My [facility], Smoking Cessation Medications and DC Order Prescriptions: New apixaban 5 mg tablet 5 mg PO BID Qty: 60 RF: 0 metoprolol succinate 100 mg tablet extended release 24 hr 100 mg PO DAILY Qty: 30 RF: 0 Continued carbidopa-levodopa 25-100 mg tablet 1 tab PO TID 30 Days Qty: 90 RF: 5 finasteride 5 mg tablet 5 mg PO HS Qty: 90 RF: 0 sitagliptin 100 mg tablet 100 mg PO HS RF: 0 metformin 500 mg tablet 1,000 mg PO BID RF: 0 lansoprazole 30 mg capsule,delayed release(DR/EC) 30 mg PO PM RF: 0 atorvastatin 40 mg tablet 40 mg PO QPM Qty: 90 RF: 0 furosemide 20 mg tablet 20 mg PO HS Qty: 90 RF: 0 potassium chloride 20 mEq tablet extended release 20 meq PO BID Qty: 90 RF: 0 alendronate 70 mg tablet 70 mg PO WE Qty: 4 RF: 0 ezetimibe 10 mg tablet 10 mg PO HS Qty: 90 RF: 0 gabapentin 100 mg capsule 100 mg PO QAM RF: 0 Jardiance 10 mg tablet 10 mg PO QAM RF: 0 Discontinued amlodipine-benazepril 5-10 mg capsule 1 cap PO QAM RF: 0 apixaban 5 mg tablet 5 mg PO BID Qty: 60 RF: 0 metoprolol succinate 50 mg tablet extended release 24 hr 50 mg PO QAM Qty: 30 RF: 0 amiodarone 200 mg Tablet 200 mg PO QAM RF: 0 Discharge Orders: Discharge Order (Routine); Ordered 05/18/19 Ordered By: Jerald Stapleton Admission Data Admit Date/Time: 05/11/19 04:11 Attending Provider: Jerald Stapleton Admit Provider: Oli Brown Primary Care Provider: Lucho Jacques Other Providers: Cristian Magana ; Oil Brown ; Monster Brown ; Monster Borrego Other Interventions: Discharge Summary Assessment (RN) Last Done: 05/18/19 12:48 DC Date/Time DO NOT enter until pt leaves facility: 05/18/19 13:55 Coding Level of Care Code D/C Day Management >30 mins Diagnoses Gross hematuria R31.0 Renal mass, right N28.89 Hypotension I95.9 Hypotension type: unspecified hypotension type Neoplasm, bladder D49.4 Atrial fibrillation with RVR I48.91 Prostatitis N41.9 Enlarged prostate N40.0 Hx of transurethral resection of prostate Z98.890; Z90.79 H/O aortic valve replacement Z95.2 Hx of von Willebrand's disease Z86.2 Diabetes mellitus E11.9 Parkinson's disease G20 GERD (gastroesophageal reflux disease) K21.9
== END 2019-05-18 13:55 | disposition home or self-care (01) | DRG 666 ==
LOC: ED 22:54 → SUATTDRO 05-11 04:11 → 2N 05-11 04:11